=== PATIENT | female | born 1960 | race Caucasian/White ===

== ENCOUNTER → 2016-05-23 | Outpatient (CLI) | payer OTHER ==
[~2016-05-23] MED LIST: ASP325T PO; ATR20T PO; DIAZ-345 PO; DULO30CA; DULO60CA6 PO; ESTR1TAB66; FENO134C PO; INSU100C4 SQ; INSU100I11 SQ; INSU100V7 SQ; LEVE1U; METF-380 PO; NSTU5 PO; OMEG1CAP74 PO; PGLT30T PO; PIOG15TA2 PO
--- OUTSIDE RECORDS SUMMARY | 2016-05-23 14:32 | XMS REPORT | Continuity of Care Document ---
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 Name Role Phone TREVORRAGHAVNOE DO PCP Insurance Providers Payer Name Policy Number Subscriber Name Relationship [employer] [id number] Becky Mac 18 Self / Same As Patient Advance Directives Directive Response Recorded Date/Time Advance Directives No 12/24/13 2:39pm Health Care Power of Umbrella Cutter No 12/24/13 2:39pm Organ Donor No 12/24/13 2:39pm Resuscitation Status Full Code 12/24/13 2:39pm Chief Complaint and Reason for Visit Chief Complaint DKA ACUTE RENAL FAILURE Reason for Visit Acute renal failure DKA (diabetic ketoacidoses) Leukocytosis Electrolyte imbalance Problems Medical Problems Problem Onset Date Status Acute renal failure Unknown Active DKA (diabetic ketoacidoses) Unknown Active Leukocytosis Unknown Active Electrolyte imbalance Unknown Active Medications Medication Dose Route Sig Days/Qty Instructions Order Date Discontinued Date Status Me-Testosterone/Estrogen,Anju 11/12/08 07/14/12 Discontinued Insulin Detemir 11/12/08 07/14/12 Discontinued Duloxetine HCl 60 Mg PO DAILY 11/12/08 Active Duloxetine HCl 11/12/08 07/14/12 Discontinued Metformin HCl (Glucophage) 1,000 Mg PO TWICE A DAY WITH MEALS 12/27/13 Discontinued Pioglitazone HCl 15 Mg PO DAILY 07/14/12 12/24/13 Discontinued Aspirin 325 Mg PO DAILY 07/14/12 12/24/13 Discontinued Fenofibrate (Lofibra) 134 Mg PO DAILY 07/14/12 Active Insulin Glulisine 5 Unit SQ WITH MEALS 07/14/12 12/24/13 Discontinued Diazepam 10 Mg PO BEDTIME PRN SLEEP 07/14/12 Active Insulin Glargine 50 Units SQ DAILY 07/14/12 Active Roxton-3/Dha/Epa/Fish Oil 1,000 Mg PO DAILY 08/06/12 12/24/13 Discontinued Atorvastatin Calcium 20 Mg PO DAILY 08/06/12 12/24/13 Discontinued Pioglitazone HCl 15 Mg PO DAILY 12/24/13 12/27/13 Discontinued Insulin Glulisine 5 U SQ BEFORE MEALS 1 Qty 12/27/13 Active Nystatin 5 Ml PO GIVE EVERY 6 HR ON SCHEDULE 14 Days 12/27/13 Active Social History Social History Problem Response Recorded Date/Time Alcohol Use Occasionally Uses 12/24/2013 2:49pm Recreational Drug Use No 12/24/2013 2:49pm Smoking Status Current Everyday Smoker 12/24/2013 2:39pm Query Response Start Date Stop Date Smoking Status Current Everyday Smoker Hospital Discharge Instructions Patient Instructions Physician Instructions New, Converted or Re-Newed RX: Call to Patients Pharmacy Plan of Care/Instructions/FU: Fwup with PCP in 1week Accuchecks q AC and HS until fwup Activity as Tolerated: Yes Discharge Diet: ADA Diet Plan of Care Discharge Date 12/27/13 6:35pm Disposition 30 STILL A PATIENT Instructions/Education Provided Diabetic Ketoacidosis (GEN) Prescriptions See Medications Section Functional Status Query Response Date Recorded Patient Orientation Person Place [facility] December 27, 2013 7:09pm Comprehension Ability Unable to Comprehend December 26, 2013 8:08pm Allergies, Adverse Reactions, Alerts Allergen Type Severity Reaction Status Last Updated morphine Adverse Reaction Intermediate MAKES HER MEAN Active 08/06/12 Immunizations Name Given Type pneumococcal polysaccharide PPV23 12/26/13 Administered pneumococcal polysaccharide PPV23 12/26/13 Administered Vital Signs Acute Vital Signs Vital Response Date/Time Temperature (Fahrenheit) 98.1 degrees F (97.6 - 99.5) Temperature (Calculated Celsius) 36.60659 degrees C (36.4 - 37.5) Temperature Source Tympanic Pulse Rate (adult) 84 bpm (60 - 90) Respiratory Rate 20 bpm (12 - 24) O2 Sat by Pulse Oximetry 94 % (88 - 100) Blood Pressure 152/84 mm Hg Pain Pain Intensity 3 Height (Feet) 5 feet Height (Inches) 6.00 inches Height (Calculated Centimeters) 167.447591 cm Weight (Pounds) 175 pounds Weight (Ounces) 1.0 oz Weight (Calculated Grams) 42817.015 gm Weight (Calculated Kilograms) 79.284790 kilograms Calculated BMI 23.89 Results Test Source Date Result Interp. Ref. Range Comments Acetaminophen Level September 21, 2007 9:55am < 10 UG/ML L 10.0-30.0 Acetaminophen Screen September 20, 2007 11:20pm Positive H - APAP= ACETAMINOPHEN/PARACETAMOL Activated Partial Thromboplast Time August 05, 2012 8:53am 30 SEC N 24-35 Alanine Aminotransferase (ALT/SGPT) August 05, 2012 8:53am 28 U/L L 30-65 LAB IS TO DRAWN THIS PATIENT. SHE IS IN [place] Albumin August 05, 2012 8:53am 3.6 G/DL N 3.4-5.0 LAB IS TO DRAWN THIS PATIENT. SHE IS [place] Alkaline Phosphatase August 05, 2012 8:53am 142 U/L H 50-136 LAB IS TO DRAWN THIS PATIENT. SHE IS [place] Aspartate Amino Transf (AST/SGOT) August 05, 2012 8:53am 12 U/L L 15-37 LAB IS TO DRAWN THIS PATIENT. SHE IS [place] BUN/Creatinine Ratio August 05, 2012 8:53am 15 - LAB IS TO DRAWN THIS PATIENT. SHE IS [place] Basophils # (Auto) November 12, 2008 9:49pm 0.1 10^3/uL N 0.0-0.1 Basophils (%) (Auto) November 12, 2008 9:49pm 1 % N 0-10 Blood Urea Nitrogen August 05, 2012 8:53am 12 MG/DL N 7-18 LAB IS TO DRAWN THIS PATIENT. SHE IS [place] Calcium Level August 05, 2012 8:53am 8.7 MG/DL N 8.5-10.1 LAB IS TO DRAWN THIS PATIENT. SHE IS [place] Carbon Dioxide Level August 05, 2012 8:53am 29 MMOL/L N 21-32 LAB IS TO DRAWN THIS PATIENT. SHE IS IN [place] Chloride Level August 05, 2012 8:53am 100 MMOL/L L 101-110 LAB IS TO DRAWN THIS PATIENT. SHE IS [place] Cholesterol Level August 05, 2012 8:53am 195 MG/DL N -200 LAB IS TO DRAWN THIS PATIENT. SHE IS [place] Creatinine August 05, 2012 8:53am 0.8 MG/DL N 0.6-1.3 LAB IS TO DRAWN THIS PATIENT. SHE IS [place] Eosinophils # (Auto) November 12, 2008 9:49pm 0.2 10^3/uL N 0.0-0.3 Eosinophils (%) (Auto) November 12, 2008 9:49pm 3 % N 0-10 Glucose Level August 05, 2012 8:53am 299 MG/DL H 74-106 LAB IS TO DRAWN THIS PATIENT. SHE IS [place] HDL Cholesterol August 05, 2012 8:53am 37 MG/DL N 35-60 LAB IS TO DRAWN THIS PATIENT. SHE IS IN [place] Hematocrit August 05, 2012 8:53am 44 % N 35-52 Hemoglobin August 05, 2012 8:53am 14.8 G/DL N 11.5-16.0 LDL Cholesterol August 05, 2012 8:53am 136 MG/DL H 0-129 LAB IS TO DRAWN THIS PATIENT. SHE IS IN [place] Lymphocytes # (Auto) November 12, 2008 9:49pm 4.0 X 10^3 N 1.0-4.0 Lymphocytes (%) (Auto) November 12, 2008 9:49pm 49 % H 12-44 Mean Corpuscular Hemoglobin August 05, 2012 8:53am 29 PG N 25-34 Mean Corpuscular Hemoglobin Concent August 05, 2012 8:53am 34 G/DL N 32-36 Mean Corpuscular Volume August 05, 2012 8:53am 84 FL N 80-99 Mean Platelet Volume August 05, 2012 8:53am 10.1 FL N 7.4-10.4 Monocytes # (Auto) November 12, 2008 9:49pm 0.4 X 10^3 N 0.0-1.0 Monocytes (%) (Auto) November 12, 2008 9:49pm 4 % N 0-12 Neutrophils # (Auto) November 12, 2008 9:49pm 3.6 X 10^3 N 1.8-7.8 Neutrophils (%) (Auto) November 12, 2008 9:49pm 44 % N 42-75 Platelet Count August 05, 2012 8:53am 247 10^3/uL N 130-400 Potassium Level August 05, 2012 8:53am 4.2 MMOL/L N 3.6-5.0 LAB IS TO DRAWN THIS PATIENT. SHE IS [place] Prothromb Time International Ratio July 09, 2007 9:21am 1.0 N 0.8-1.4 INTERPRETIVE DATASUGGESTED THERAPEUTIC RANGE FOR INR'S: VENOUS THROMBOSIS, PULMONARY EMBOLISM, OR PREVENTION OF SYSTEMIC EMBOLISM (EG. IN ATRIAL FIBRILLATION): 2.0 - 3.0 MECHANICAL PROSTHETIC HEART VALVES: 2.5 - 3.5* *NOTE: INR'S UP TO 4.5 MAY BE NECESSARY IN SELECTED GROUPS OF HIGH RISK PATIENTS. [employer] CONSENSUS CONFERENCE ON ANTITHROMBOTIC THERAPY (2000). Prothrombin Time August 05, 2012 8:53am 11.4 SEC L 12.2-14.7 Red Blood Count August 05, 2012 8:53am 5.18 10^6/uL N 4.35-5.85 Red Cell Distribution Width August 05, 2012 8:53am 12.5 % N 10.0-14.5 Salicylates Level September 20, 2007 11:23pm 5.0 MG/DL N 2.8-20.0 Has specimen been collected/obtained? Y Sodium Level August 05, 2012 8:53am 136 MMOL/L N 135-145 LAB IS TO DRAWN THIS PATIENT. SHE IS IN [place] Total Bilirubin August 05, 2012 8:53am 0.2 MG/DL N 0.0-1.0 LAB IS TO DRAWN THIS PATIENT. SHE IS IN [place] Total Protein August 05, 2012 8:53am 7.3 G/DL N 6.4-8.2 LAB IS TO DRAWN THIS PATIENT. SHE IS IN [place] Triglycerides Level August 05, 2012 8:53am 111 MG/DL N 30.0-150.0 LAB IS TO DRAWN THIS PATIENT. SHE IS IN [place] Ur Tricyclic Antidepressants Screen September 20, 2007 11:20pm Negative - Has specimen been collected/obtained? YSpecimen Description CLEAN CATCH Urine Amphetamines Screen September 20, 2007 11:20pm Negative - Has specimen been collected/obtained? YSpecimen Description CLEAN CATCH Urine Bacteria November 12, 2008 8:10pm TRACE - Has specimen been collected/obtained? YSpecimen Description CLEAN CATCH Urine Barbiturates Screen September 20, 2007 11:20pm Negative - Has specimen been collected/obtained? YSpecimen Description CLEAN CATCH Urine Benzodiazepines Screen September 20, 2007 11:20pm Negative - Has specimen been collected/obtained? YSpecimen Description CLEAN CATCH Urine Bilirubin November 12, 2008 8:10pm NEGATIVE - Has specimen been collected/obtained? YSpecimen Description CLEAN CATCH Urine Casts November 12, 2008 8:10pm NONE - Has specimen been collected /obtained? YSpecimen Description CLEAN CATCH Urine Clarity November 12, 2008 8:10pm CLEAR - Has specimen been collected/obtained? YSpecimen Description CLEAN CATCH Urine Cocaine Screen September 20, 2007 11:20pm Negative - Has specimen been collected/obtained? YSpecimen Description CLEAN CATCH Urine Color November 12, 2008 8:10pm YELLOW - Has specimen been collected/obtained? YSpecimen Description CLEAN CATCH Urine Crystals November 12, 2008 8:10pm NONE - Has specimen been collected/obtained? YSpecimen Description CLEAN CATCH Urine Culture Indicated November 12, 2008 8:10pm NO - Has specimen been collected/obtained? YSpecimen Description CLEAN CATCH Urine Glucose (UA) November 12, 2008 8:10pm 3+ H - Has specimen been collected/obtained? YSpecimen Description CLEAN CATCH Urine Hyaline Casts September 20, 2007 11:20pm 0-2 H - Has specimen been collected/obtained? YSpecimen Description CLEAN CATCH Urine Ketones November 12, 2008 8:10pm NEGATIVE - Has specimen been collected/obtained? YSpecimen Description CLEAN CATCH Urine Leukocyte Esterase November 12, 2008 8:10pm NEGATIVE - Has specimen been collected/obtained? YSpecimen Description CLEAN CATCH Urine Methamphetamines Screen September 20, 2007 11:20pm Negative - Has specimen been collected/obtained? YSpecimen Description CLEAN CATCH Urine Mucus November 12, 2008 8:10pm NEGATIVE - Has specimen been collected/obtained? YSpecimen Description CLEAN CATCH Urine Nitrite November 12, 2008 8:10pm NEGATIVE - Has specimen been collected/obtained? YSpecimen Description CLEAN CATCH Urine Opiates Screen September 20, 2007 11:20pm Positive H - Has specimen been collected/obtained? YSpecimen Description CLEAN CATCH Urine Phencyclidine Screen September 20, 2007 11:20pm Negative - Phencyclidine testing by this method can showcross-reactivity with several common medications such as venlafaxine, dextromethorphan, and diphenhydramine. Submission of any positive sample for confirmatory testing is recommended. Urine Test August 19, 2007 6:27am Negative - Has specimen been collected/obtained? YComments to Disc Sander: DS#1 Urine Protein November 12, 2008 8:10pm NEGATIVE - Has specimen been collected/obtained? YSpecimen Description CLEAN CATCH Urine RBC November 12, 2008 8:10pm NONE /HPF - Has specimen been collected/obtained? YSpecimen Description CLEAN CATCH Urine Specific Bailey November 12, 2008 8:10pm 1.010 L - Has specimen been collected/obtained? YSpecimen Description CLEAN CATCH Urine Squamous Epithelial Cells November 12, 2008 8:10pm 2-5 - Has specimen been collected/obtained? YSpecimen Description CLEAN CATCH Urine Urobilinogen November 12, 2008 8:10pm NORMAL MG/DL - Has specimen been collected/obtained? YSpecimen Description CLEAN CATCH Urine WBC November 12, 2008 8:10pm 0-2 /HPF - Has specimen been collected/obtained? YSpecimen Description CLEAN CATCH Urine pH November 12, 2008 8:10pm 6.0 - Has specimen been collected/ obtained? YSpecimen Description CLEAN CATCH VLDL Cholesterol August 05, 2012 8:53am 22 MG/DL N 5-40 LAB IS TO DRAWN THIS PATIENT. SHE IS IN [place] White Blood Count August 05, 2012 8:53am 6.2 10^3/uL N 4.3-11.0 Serum Alcohol September 20, 2007 11:23pm < 5 MG/DL L 5-300 Has specimen been collected/obtained? Y Glucometer September 21, 2007 6:17am 180 MG/DL H 70-110 Estimat Glomerular Filtration Rate August 05, 2012 8:53am > 60 - GFR INTERPRETIVE DATA UNITS FOR ESTIMATED GFR (eGFR): mL/min/1.73 M2 REFERENCE RANGE FOR ESTIMATED GFR (eGFR) eGFR NORMAL eGFR >60 MODERATELY DECREASED eGFR 30-59 SEVERLY DECREASED eGFR 15-29 KIDNEY FAILURE <15 (OR DIALYSIS) Urine Methadone Screen September 20, 2007 11:20pm Negative - Has specimen been collected/obtained? YSpecimen Description CLEAN CATCH Urine Cannabinoids Screen September 20, 2007 11:20pm Negative - Has specimen been collected/obtained? YSpecimen Description CLEAN CATCH Urine RBC (Auto) November 12, 2008 8:10pm NEGATIVE - Has specimen been collected/obtained? YSpecimen Description CLEAN CATCH INR Comment August 05, 2012 8:53am 0.8 N 0.8-1.4 INTERPRETIVE DATASUGGESTED THERAPEUTIC RANGE FOR INR'S: VENOUS THROMBOSIS, PULMONARY EMBOLISM, OR PREVENTION OF SYSTEMIC EMBOLISM (EG. IN ATRIAL FIBRILLATION): 2.0 - 3.0 MECHANICAL PROSTHETIC HEART VALVES: 2.5 - 3.5* *NOTE: INR'S UP TO 4.5 MAY BE NECESSARY IN SELECTED GROUPS OF HIGH RISK PATIENTS. [employer] CONSENSUS CONFERENCE ON ANTITHROMBOTIC THERAPY (2000). MRSA Screen Nasal September 21, 2007 6:15am MRSA not isolated Urine Culture Urine-Clean Catch September 20, 2007 11:20pm Procedures Procedure Status Date Provider(s) Tracing only of electrocardiogram completed 12/24/13 YUNIOR DIAZ DO Encounters Encounter Location Date/Time Discharged Inpatient [facility] 12/24/13 11:53am Recent Diagnosis Acute renal failure DKA (diabetic ketoacidoses) Leukocytosis Electrolyte imbalance
--- NOTE | 2016-05-29 08:00 | ECHOCARDIOGRAPHY REPORT ---
PROCEDURE PHYSICIAN: RADHA GUO DATE OF PROCEDURE: 05/23/2016 TWO DIMENSIONAL ECHOCARDIOGRAM REPORT PRIMARY PHYSICIAN: Dr. David OTHER PHYSICIAN: REFERRING PHYSICIAN: ORDERING PHYSICIAN: Dr. David INDICATION FOR THE PROCEDURE: Aortic root dilation. MEASUREMENTS DERIVED VALUES LV DIAMETER (LAX) NORMALS NORMALS Diastolic 4.3 (3.6-5.2) Eject. Fract. (60%+/-6%) Systolic (2.3-3.9) Diastolic Vol. % Shortening (0.22-0.42) Systolic Vol. Aortic Root 3.5 IVS THICKNESS Diastolic 0.7 (0.6-1.1) LVPW THICKNESS Diastolic 1 (0.6-1.1) LA DIAMETER Systolic 3.4 (2.1-3.7) DESCRIPTION: Two-dimensional echocardiography shows normal global left ventricular systolic function with normal regional wall motion. Aortic, mitral and tricuspid valve leaflets show good leaflet excursion. There is no significant pericardial effusion. There appears to be mild aortic valve sclerosis. Aortic valve appears to be trileaflet. There is no Doppler evidence of any significant valvular stenosis. Mitral inflow is suggestive of grade 1 diastolic dysfunction of the left ventricle. Left ventricular ejection fraction is 55 to 60%. Doppler imaging shows trivial, mitral and tricuspid regurgitation. There is no evidence of significant intracardiac shunt on this transthoracic echocardiographic study. Inferior vena cava appears to be mildly dilated but does exhibit inspiratory collapse. CONCLUSIONS: 1. Normal global left ventricular systolic function with an ejection fraction of approximately 60%. 2. Mild diastolic dysfunction of the left ventricle is suggested on this study. 3. Mild aortic valve sclerosis without any significant aortic stenosis. 4. Trivial, mitral and tricuspid regurgitation. 5. Pulmonary artery systolic pressure is estimated to be within normal limits. 6. This study does not indicate aortic root enlargement. Ascending aorta is not visualized on this study. Job ID: [id number] Dictated Date: 05/28/2016 13:59:36 Scientific Manager Date: 05/29/2016 07:54:39 / pedro
== END ==
LOC: CARD 14:29
PROVIDERS: ATTEND Internal Medicine
DX: I77.819 Aortic ectasia, unspecified site (principal)
CPT/HCPCS: 93306

== ENCOUNTER → 2017-04-18 | Outpatient (CLI) | payer OTHER ==
--- NOTE | 2017-04-18 11:58 | Diagnostic Imaging Report ---
INDICATION: Right hip pain. TIME OF EXAM: 11:53 AM 2 views of the right hip were obtained. FINDINGS: The femoral acetabular alignment is normal. The joint space is well-maintained. The femoral head and neck are intact. No fractures are identified. IMPRESSION: No acute abnormality is detected. Dictated by: Dictated on workstation # [id number]
--- NOTE | 2017-04-18 11:59 | Diagnostic Imaging Report ---
INDICATION: Back pain radiating to the right hip. TIME OF EXAM: 11:51 AM FINDINGS: Curvature and alignment is normal. Vertebral body heights are well-maintained. No acute compression fracture seen. Disc spaces are fairly well-maintained. The aorta does appear to be calcified. IMPRESSION: No acute bony abnormality is detected. Dictated by: Dictated on workstation # [id number]
--- NOTE | 2017-04-18 12:02 | Diagnostic Imaging Report ---
INDICATION: Back pain. TIME OF EXAM: 11:47 AM FINDINGS: Curvature and alignment of the thoracic spine is normal. The vertebral body heights are well-maintained. No acute compression fracture is seen. The pedicles and paraspinous line are intact. IMPRESSION: No acute abnormality is detected. Dictated by: Dictated on workstation # [id number]
== END ==
LOC: RAD 11:14
PROVIDERS: ATTEND Nurse Practitioner Family
DX: M54.5 Low back pain (principal); M25.551 Pain in right hip
CPT/HCPCS: 72072; 72100; 73502

== ENCOUNTER → 2019-12-17 | Outpatient (CLI) | payer OTHER ==
--- NOTE | 2019-12-17 14:34 | Diagnostic Imaging Report ---
PROCEDURE: US carotid duplex, bilateral. TECHNIQUE: Multiple real-time grayscale images were obtained over the carotid arteries in various projections, bilaterally. Additional spectral analysis and color Doppler duplex images were also obtained. INDICATION: Dizziness and carotid bruit. FINDINGS: Mild plaquing in the carotid bulbs and proximal ICAs is noted. Velocities are normal bilaterally. No velocity elevation or stenosis is detected. Both vertebral arteries show antegrade flow. IMPRESSION: No evidence of a hemodynamically significant stenosis. Parameters based on the consensus panel Bella-Scale and Doppler ultrasound criteria published January 2003, Radiology, Volume 229. DOPPLER (peak systolic velocity M/S Right Left CCA 0.93 0.88 ICA Proximal 0.81 0.91 ICA Mid 0.97 1.13 ICA Distal 0.74 1.22 RATIO 1.0 1.4 ECA 1.14 1.04 VERT .49 0.65 Dictated by: Dictated on workstation # [id number]
--- NOTE | 2019-12-17 17:21 | Diagnostic Imaging Report ---
PROCEDURE: US Bilateral lower extremity arterial. TECHNIQUE: Multiple real-time grayscale images are obtained through both lower extremity arterial systems with color Doppler imaging and color Doppler spectral analysis. INDICATION: Bilateral lower extremity claudication. There is some scattered plaquing throughout both lower extremity arterial systems. There is biphasic waveforms in both the right and left common femoral arteries as well as superficial femoral and popliteal arteries. Velocities appear to be fairly symmetric. Below the knee, there are biphasic waveforms in both the right and left anterior tibial arteries. There is monophasic flow at the right posterior tibial artery which is also dampened measuring 19 cm/s compared with the left-sided posterior tibial artery at the ankle measuring 74 cm/s and is biphasic. Both the right and left dorsalis pedis arteries are monophasic. IMPRESSION: Small vessel disease below the knees, as described with monophasic flow in bilateral dorsalis pedis arteries. There is also some dampened velocities and monophasic flow at the right ankle within the posterior tibial artery. No definite complete occlusion is detected. Dictated by: Dictated on workstation # [id number]
== END ==
LOC: RAD 12:00
PROVIDERS: ATTEND Nurse Practitioner Family
DX: I73.9 Peripheral vascular disease, unspecified (principal); G43.909 Migraine, unspecified, not intractable, without status migrainosus; I99.9 Unspecified disorder of circulatory system; R42 Dizziness and giddiness; Z82.3 Family history of stroke
CPT/HCPCS: 93880; 93925

== ENCOUNTER → 2019-12-20 | Outpatient (CLI) | payer OTHER ==
--- NOTE | 2019-12-20 14:17 | Diagnostic Imaging Report ---
PROCEDURE: MR angiography of the brain without the use of contrast. TECHNIQUE: 3D [id number] non contrast enhanced MR angiography of the head was performed. A source data was reformatted into rotating MIP projections. INDICATION: Dizziness. No prior studies are available for comparison. The distal internal carotid arteries appear widely patent. The distal vertebral arteries and basilar artery are patent. The anterior, middle and posterior cerebral arteries are patent. No stenosis or aneurysm is detected. IMPRESSION: Unremarkable MRA of the brain. Dictated by: Dictated on workstation # [id number]
== END ==
LOC: RAD 12:30
PROVIDERS: ATTEND Nurse Practitioner Family
DX: G43.909 Migraine, unspecified, not intractable, without status migrainosus (principal); R42 Dizziness and giddiness; R09.89 Other specified symptoms and signs involving the circulatory and respiratory systems; Z82.3 Family history of stroke
CPT/HCPCS: 70544

== ENCOUNTER → 2020-04-28 | Outpatient (CLI) | payer OTHER ==
--- NOTE | 2020-04-28 17:31 | Diagnostic Imaging Report ---
EXAM: Foot, left, 3 views. INDICATION: Left foot pain. COMPARISON: None. FINDINGS: Linear lucencies and sclerosis in the left 5th proximal phalanx. No other finding suspicious for fracture. No radiopaque foreign body. Achilles and plantar calcaneal heel spurs. IMPRESSION: Linear lucencies and sclerosis in the left 5th proximal phalanx suspicious for subacute, healing fracture. Dictated by: Dictated on workstation # [id number]
== END ==
LOC: RAD 16:46
PROVIDERS: ATTEND Nurse Practitioner Family
DX: S92.912D Unspecified fracture of left toe(s), subsequent encounter for fracture with routine healing (principal); X58.XXXD Exposure to other specified factors, subsequent encounter
CPT/HCPCS: 73630

== ENCOUNTER → 2020-05-25 | Outpatient (CLI) | payer OTHER ==
[~2020-05-25] MED LIST changes: +CATHETER FLUSH 10 ML SYR IV PRN; +HOLD METFORMIN - RECEIVED CONTRAST 20 ML VIAL IV SCH; +IOHEXOL 350 MG/ML 150 ML (OMNIPAQUE 350) VIAL IV ONE; +NS 100 ML (IVPB) BAG IV ONE
--- NOTE | 2020-05-25 08:51 | Diagnostic Imaging Report ---
INDICATION: Bilateral lower extremity claudication. Abnormal arterial sonogram. Axial images were obtained through the pelvis and lower extremities after the administration of IV contrast. MIP projections were made with a CT angiography. Measurements correspond with NASCET methodology. The distal aorta is visualized which shows some calcifications with no aneurysm, stenosis or dissection. There is scattered disease in the iliac arteries with no hemodynamically significant stenosis seen. The common femoral arteries are widely patent bilaterally. There is scattered calcified and noncalcified plaque seen within the superficial femoral and popliteal arteries bilaterally with stenosis of less than 30%. There is multifocal trifurcation vessel disease present. On the right, the anterior tibial artery is visualized down into the foot. The posterior tibial and peroneal arteries on the right are not visualized distal to the distal calf level. On the left, there is multifocal trifurcation vessel disease with no high-grade stenoses or occlusions seen and the 3 vessels are patent into the foot. IMPRESSION: There is trifurcation vessel disease present bilaterally with nonvisualization of the posterior tibial and peroneal arteries in the distal right calf. Only mild disease is seen elsewhere on the study. Dictated by: Dictated on workstation # [id number]
== END ==
LOC: RAD 08:15
PROVIDERS: ATTEND Nurse Practitioner Family
DX: I70.293 Other atherosclerosis of native arteries of extremities, bilateral legs (principal)

== ENCOUNTER 2020-10-12 17:30 | Emergency (ER) | payer OTHER ==
[~2020-10-12] VITALS: Ht 162 cm; Wt 86.2 kg
[~2020-10-12 17:30] MED LIST changes: -CATHETER FLUSH 10 ML SYR IV PRN; -HOLD METFORMIN - RECEIVED CONTRAST 20 ML VIAL IV SCH; -IOHEXOL 350 MG/ML 150 ML (OMNIPAQUE 350) VIAL IV ONE; -NS 100 ML (IVPB) BAG IV ONE
[2020-10-12 17:56] VITALS: BP 158/80
[2020-10-12 18:00] LABS: BASOPHILS # (AUTO) 0.1 10^3/uL (0.0-0.1); BASOPHILS % (AUTO) 1 % (0-10); EOSINOPHILS # (AUTO) 0.2 10^3/uL (0.0-0.3); EOSINOPHILS % (AUTO) 2 % (0-10); HEMATOCRIT 44 % (35-52); HEMOGLOBIN 14.4 g/dL (11.5-16.0); LYMPHOCYTES # (AUTO) 3.5 10^3/uL (1.0-4.0); LYMPHOCYTES % (AUTO) 41 % (12-44); MEAN CORPUSCULAR HEMOGLOBIN 29 pg (25-34); MEAN CORPUSCULAR HGB CONC 33 g/dL (32-36); MEAN CORPUSCULAR VOLUME 88 fL (80-99); MEAN PLATELET VOLUME 10.6 fL (9.0-12.2); MONOCYTES # (AUTO) 0.5 10^3/uL (0.0-1.0); MONOCYTES % (AUTO) 5 % (0-12); NEUTROPHILS # (AUTO) 4.2 10^3/uL (1.8-7.8); NEUTROPHILS % (AUTO) 50 % (42-75); PLATELET COUNT 229 10^3/uL (130-400); WHITE BLOOD COUNT 8.4 10^3/uL (4.3-11.0)
--- NOTE | 2020-10-12 18:12 | ED General ---
General Chief Complaint: Head/Cervical Problems Stated Complaint: DIZZINESS, HIGH HEART RATE Nursing Triage Note: pt presents to ed with complaints of HURD and l forearm numbness since friday. pt reports she was on a zoom tele dr visit with santos rosales today around 1700 when she had some palpitations, tachycardia, and dizziness. Pt was referred to the ed for further evaluation. Source of Information: Patient (SOMEWHAT VAGUE HISTORIAN) History of Present Illness Date Seen by Provider: Oct 12, 2020 Time Seen by Provider: 17:42 Initial Comments PT ARRIVES VIA POV FROM HOME C/O HEADACHE X 3 DAYS HEADACHE IS ON TOP OF HEAD ALSO C/O NUMBNESS TO DORSAL ASPECT OF LEFT MID FOREARM OFF AND ON SINCE FRIDAY NO MOTOR DEFICITS NO VISION CHANGES C/O NAUSEA, NO VOMITING STATES SHE HAS HISTORY OF MIGRAINES AND SHE DOES HAVE THESE SYMPTOMS WITH HER MIGRAINES, BUT STATES "NORMALLY I DON'T GET THEM AT NIGHT, BUT I'VE BEEN GETTING THEM AT NIGHT" TOOK 1 BUTALBITAL LAST PM AROUND 2200, OTHERWISE HAS NOT TAKEN ANYTHING ELSE FOR HEADACHE STATES AROUND NOON TODAY, SHE GOT DIZZY AND HER HEART STARTED POUNDING AND HER HEAD WAS SPINNING AND SHE COULD FEEL HER PULSE IN THE BACK OF HER NECK--NOT HAVING THOSE SYMPTOMS NOW CALLED MARITZA GARDNER JUST BEFORE 1700 TONIGHT AND WAS TOLD TO GO TO ER NO FEVER OR RECENT ILLNESS NO SORE THROAT NO LOSS OF TASTE OR SMELL NO COUGH OR URI SYMPTOMS DOES HAVE CHRONIC NECK AND BACK PAIN, AND IS NO DIFFERENT THAN NORMAL. PT IS INSULIN DEPENDENT DIABETIC, STATES SHE NEVER CHECKS HER BLOOD SUGAR, BUT STATES IT IS "ALWAYS HIGH"--300-400'S NORMALLY PT ALSO HAS HISTORY OF HTN STATES SHE TAKES ALL OF HER MEDICATIONS AT NIGHT, AND NO MISSED DOSES OR CHANGES IN MEDICATIONS OR DOSES PT HAS NOT HAD COVID-19 VACCINE PT WORKS AT [employer] PCP: DR. GARDNER/ MARITZA GARDNER Allergies and Home Medications Allergies Coded Allergies: morphine (Unverified Adverse Reaction, Intermediate, MAKES HER MEAN, 08/06/12) Home Medications Diazepam 5 Mg Tablet, 10 MG PO HS PRN for SLEEP, (Reported) Duloxetine Hcl 60 Mg Capsule.dr, 60 MG PO DAILY, (Reported) Fenofibrate,Micronized 134 Mg Capsule, 134 MG PO DAILY, (Reported) Insulin Glargine,Hum.rec.anlog 300 Units/3 Ml Soln, 50 UNITS SQ DAILY, (Reported) Insulin Glulisine 100 U/Ml Vial, 5 U SQ AC Prescribed by: NOE BONE on 12/27/13 1723 Nystatin 5 Ml Susp, 5 ML PO Q6HR Prescribed by: ISRAEL ACEVEDO on 12/27/13 1745 Patient Home Medication List Home Medication List Reviewed: Yes Review of Systems Review of Systems Constitutional: see HPI; No chills, No diaphoresis; dizziness; No fever EENTM: no symptoms reported; No blurred vision, No double vision, No nose congestion, No throat pain Respiratory: no symptoms reported; No cough, No short of breath Cardiovascular: no symptoms reported; No chest pain Gastrointestinal: see HPI; No abdominal pain, No diarrhea; nausea; No vomiting Genitourinary: no symptoms reported Musculoskeletal: see HPI Skin: no symptoms reported; No rash Psychiatric/Neurological: See HPI, Headache, Numbness, Paresthesia; Denies Weakness Hematologic/Lymphatic: No Symptoms Reported Immunological/Allergic: no symptoms reported Past Wrrimdq-Ytowbs-Zvoote Hx Patient Social History Tobacco Use?: Yes (1 PPD) Tobacco type used: Cigarettes Smoking Status: Current Everyday Smoker Smokeless Tobacco Frequency: Never a User Use of E-Cig and/or Vaping dev: No Substance use?: Yes Substance type: Amphetamines, Marijuana Additional substance use comme: THC AND "SPEED" PILLS Substance frequency: Once in a while Alcohol Use?: Yes Alcohol Frequency: Rarely Past Medical History Surgery/Hospitalization HX: RIGHT ROTATOR CUFF REPAIR HYSTERECTOMY/BILATERAL SALPINGO-OOPHORECTOMY CHOLECYSTECTOMY APPENDECTOMY BILATERAL CARPAL TUNNEL SURGERY CARDIAC CATHS--2007 AND 07/2012--MINIMAL DISEASE, NO INTERVENTION ECHOCARDIOGRAMS-LAST ONE 2016-EF 60%, MILD DIASTOLIC DYSFUNCTION Surgeries: Yes (RIGHT ) Appendectomy, Gallbladder, Hysterectomy, Oophorectomy, Orthopedic Respiratory: No Cardiac: Yes High Cholesterol, Hypertension Neurological: Yes Headaches /Migraines 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 1.0oz. [id number]; 32.00 BMI Method: General Appearance: No Apparent Distress, WD/WN, Other (DOES NOT APPEAR TO BE IN ANY DISCOMFORT OR DISTRESS. FLAT/NON-CHALANT AFFECT. ) HEENT: PERRL/EOMI, TMs Normal, Normal ENT Inspection, Pharynx Normal, Moist Mucous Membranes Neck: Full Range of Motion, Normal Inspection, Non Tender, Supple; No Carotid Bruit, No JVD Respiratory: Normal Breath Sounds, No Accessory Muscle Use, No Respiratory Distress Cardiovascular: Regular Rate, Rhythm, No Edema, No JVD, No Murmur, Normal Peripheral Pulses Gastrointestinal: Non Tender, Soft Back: No CVA Tenderness Extremity: Normal Capillary Refill, Normal Inspection, Normal Range of Motion, Non Tender, No Calf Tenderness, No Pedal Edema Neurologic/Psychiatric: Alert, Oriented x3, No Motor/Sensory Deficits, 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 Norm as Tested; No Abnormal Cerebellar Tests; Other (NIH = 0; SPEECH CLEAR, GAIT STEADY) Skin: Normal Color, Warm/Dry; No Rash Progress/Results/Core Measures Suspected Sepsis SIRS Temperature: Pulse: 62 Respiratory Rate: 18 Laboratory Tests 10/12/20 17:55: White Blood Count 8.4 Blood Pressure 158 /80 Mean: 106 Laboratory Tests 10/12/20 17:55: Creatinine 0.96, Platelet Count 229, Total Bilirubin 0.2 Results/Orders Lab Results Laboratory Tests Test 10/12/20 17:55 10/12/20 17:56 10/12/20 18:03 Range/Units White Blood Count 8.4 4.3-11.0 10^3/uL Red Blood Count 5.00 3.80-5.11 10^6/uL Hemoglobin 14.4 11.5-16.0 g/dL Hematocrit 44 35-52 % Mean Corpuscular Volume 88 80-99 fL Mean Corpuscular Hemoglobin 29 25-34 pg Mean Corpuscular Hemoglobin Concent 33 32-36 g/dL Red Cell Distribution Width 12.5 10.0-14.5 % Platelet Count 229 130-400 10^3/uL Mean Platelet Volume 10.6 9.0-12.2 fL Immature Granulocyte % (Auto) 0 % Neutrophils (%) (Auto) 50 42-75 % Lymphocytes (%) (Auto) 41 12-44 % Monocytes (%) (Auto) 5 0-12 % Eosinophils (%) (Auto) 2 0-10 % Basophils (%) (Auto) 1 0-10 % Neutrophils # (Auto) 4.2 1.8-7.8 10^3/uL Lymphocytes # (Auto) 3.5 1.0-4.0 10^3/uL Monocytes # (Auto) 0.5 0.0-1.0 10^3/uL Eosinophils # (Auto) 0.2 0.0-0.3 10^3/uL Basophils # (Auto) 0.1 0.0-0.1 10^3/uL Immature Granulocyte # (Auto) 0.0 0.0-0.1 10^3/uL Erythrocyte Sedimentation Rate 14 0-30 MM/HR Sodium Level 137 135-145 MMOL/L Potassium Level 4.0 3.6-5.0 MMOL/L Chloride Level 102 98-107 MMOL/L Carbon Dioxide Level 24 21-32 MMOL/L Anion Gap 11 5-14 MMOL/L Blood Urea Nitrogen 15 7-18 MG/DL Creatinine 0.96 0.60-1.30 MG/DL Estimat Glomerular Filtration Rate 59 BUN/Creatinine Ratio 16 Glucose Level 299 H 70-105 MG/DL Calcium Level 9.3 8.5-10.1 MG/DL Corrected Calcium 9.5 8.5-10.1 MG/DL Magnesium Level 1.9 1.6-2.4 MG/DL Total Bilirubin 0.2 0.1-1.0 MG/DL Aspartate Amino Transf (AST/SGOT) 14 5-34 U/L Alanine Aminotransferase (ALT/SGPT) 10 0-55 U/L Alkaline Phosphatase 82 40-136 U/L Lactate Dehydrogenase 222 H 125-220 U/L Troponin I < 0.028 <0.028 NG/ML C-Reactive Protein High Sensitivity 0.93 H 0.00-0.50 MG/DL Total Protein 7.0 6.4-8.2 GM/DL Albumin 3.7 3.2-4.5 GM/DL Procalcitonin 0.03 <0.10 NG/ML TSH [facility] Testing 1.22 0.35-4.94 UIU/ML Serum Alcohol < 10 <10 MG/DL Glucometer 279 H 70-110 MG/DL Influenza Type A (RT-PCR) Not Detected Not Detecte Influenza Type B (RT-PCR) Not Detected Not Detecte SARS-CoV-2 RNA (RT-PCR) Not Detected Not Detecte My Orders Orders - YUNIOR DIAZ DO Ed Iv/Invasive Line Start (10/12/20 17:53) Ekg Tracing (10/12/20 17:53) Monitor-Rhythm Ecg Trace Only (10/12/20 17:53) Alcohol (10/12/20 17:53) Cbc With Automated Diff (10/12/20 17:53) Comprehensive Metabolic Panel (10/12/20 17:53) Drug Screen Stat (Urine) (10/12/20 17:53) Magnesium (10/12/20 17:53) Thyroid Analyzer (10/12/20 17:53) Ua Culture If Indicated (10/12/20 17:53) Troponin I (10/12/20 17:53) Procalcitonin (Pct) (10/12/20 18:03) Hs C Reactive Protein (10/12/20 18:03) Erythrocyte Sedimentation Rate (10/12/20 18:03) LDH (10/12/20 18:03) Covid 19 Inhouse Test (10/12/20 18:03) Influenza A And B By Pcr (10/12/20 18:03) Vital Signs/I&O 10/12/20 17:56 Temp 35.8 Pulse 62 Resp 18 B/P (MAP) 158/80 (106) Pulse Ox 97 O2 Delivery Room Air Capillary Refill : Less Than 3 Seconds Blood Pressure Mean: 106 Progress Note : Progress Note PLACED IN ISOLATION ROOM COVID-19 TESTING PERFORMED ACCUCHECK 279 1842--PT LEAVING AMA-STATES SHE "CAN'T WAIT AROUND ANYMORE" AND DOES NOT WANT HEAD CT DONE, AND DOES NOT WANT TO WAIT FOR ANY TEST RESULTS. COVID TEST PENDING WHEN PT LEFT--AMA PAPERS SIGNED ECG Initial ECG Impression Date: Oct 12, 2020 Initial ECG Impression Time: 17:50 Initial ECG Rate: 63 Initial ECG Impression: Nonspecific Changes Initial ECG Comparisson: Unchanged Departure Impression Primary Impression: Left against medical advice Disposition: AGAINST MEDICAL ADVICE Condition: Against Medical Advice Departure-Patient Inst. Referrals: ACSSANDRA GARDNER DO (PCP/Family) Primary Care Physician YUNIOR DIAZ DO Oct 12, 2020 18:12
[2020-10-12 18:14] LABS: ALBUMIN 3.7 GM/DL (3.2-4.5); CHLORIDE 102 MMOL/L (98-107); SODIUM 137 MMOL/L (135-145)
[2020-10-12 18:15] LABS: CALCIUM 9.3 MG/DL (8.5-10.1)
[2020-10-12 18:16] LABS: GLUCOSE 299 MG/DL (70-105)
[2020-10-12 18:17] LABS: CARBON DIOXIDE 24 MMOL/L (21-32)
[2020-10-12 18:18] LABS: BILIRUBIN,TOTAL 0.2 MG/DL (0.1-1.0)
[2020-10-12 18:20] LABS: ALKALINE PHOSPHATASE 82 U/L (40-136); CREATININE SERUM 0.96 MG/DL (0.60-1.30); GFR ESTIMATED 59
[2020-10-12 18:21] LABS: BUN/CREATININE RATIO 16
[2020-10-12 18:23] LABS: ALANINE AMINOTRANSFERASE 10 U/L (0-55); MAGNESIUM 1.9 MG/DL (1.6-2.4)
[2020-10-12 18:43] LABS: TSH (THYROID ANALYZER) 1.22 UIU/ML (0.35-4.94)
== END 2020-10-12 18:50 | disposition left against medical advice (07) ==
LOC: EDUNIT# 17:30 → ER 17:33
DX: R51.9 Headache, unspecified (principal); R20.0 Anesthesia of skin; I10 Essential (primary) hypertension; E11.9 Type 2 diabetes mellitus without complications; F41.9 Anxiety disorder, unspecified; F32.9 Major depressive disorder, single episode, unspecified; E78.00 Pure hypercholesterolemia, unspecified; F17.210 Nicotine dependence, cigarettes, uncomplicated; Z86.69 Personal history of other diseases of the nervous system and sense organs; Z79.4 Long term (current) use of insulin; Z79.899 Other long term (current) drug therapy; Z20.822 Contact with and (suspected) exposure to COVID-19
CPT/HCPCS: 80053; 82947; 83615; 83735; 84145; 84443; 84484; 85025; 85652; 86141; 87636; 93005; 93041; 99284; G0480; 36415; 80320

== ENCOUNTER 2020-10-13 10:57 | Inpatient (IN) | payer OTHER ==
[~2020-10-13] VITALS: Ht 162.6 cm; Wt 81.7 kg
[2020-10-13] VITALS (10 sets, daily range): BP systolic 137–185; BP diastolic 77–107
--- NOTE | 2020-10-13 11:35 | ED Neurological Problem ---
General Chief Complaint: Neuro-Stroke Like Symptoms Stated Complaint: L SIDED NUMBNESS Source: patient Exam Limitations: no limitations History of Present Illness Date Seen by Provider: Oct 13, 2020 Time Seen by Provider: 11:33 Initial Comments To ER with left-sided numbness. She was seen here last night to be evaluated for her migraines and left arm weakness. She has a history of migraines but she is been getting them at night which is unusual for her. She has had some left arm weakness since 10/10/2015. Upon awakening this morning at about 8 AM nothing was different. At about 10 AM she noticed her left leg to quit working. She is also been having some spasms in the left side of her abdomen but denies nausea vomiting diarrhea or tenderness to touch the abdomen. She is insulin- dependent diabetic but never checks her blood sugars. She smokes 1 pack of cigarettes per day. She left AGAINST MEDICAL ADVICE last night prior to receiving CT evaluation. Timing/Duration: 1 week, increasing Severity: moderate Associated Symptoms: denies symptoms Allergies and Home Medications Allergies Coded Allergies: morphine (Unverified Adverse Reaction, Intermediate, MAKES HER MEAN, 08/06/12) Home Medications Diazepam 5 Mg Tablet, 10 MG PO HS PRN for SLEEP, (Reported) Duloxetine Hcl 60 Mg Capsule.dr, 60 MG PO DAILY, (Reported) Fenofibrate,Micronized 134 Mg Capsule, 134 MG PO DAILY, (Reported) Insulin Glargine,Hum.rec.anlog 300 Units/3 Ml Soln, 50 UNITS SQ DAILY, (Report ed) Insulin Glulisine 100 U/Ml Vial, 5 U SQ AC Prescribed by: NOE BONE on 12/27/13 172 Nystatin 5 Ml Susp, 5 ML PO Q6HR Prescribed by: ISRAEL ACEVEDO on 12/27/13 1745 Patient Home Medication List Home Medication List Reviewed: Yes Review of Systems Review of Systems Constitutional: see HPI Eyes: No Symptoms Reported Ears, Nose, Mouth, Throat: no symptoms reported Respiratory: no symptoms reported Cardiovascular: no symptoms reported Genitourinary: no symptoms reported Musculoskeletal: no symptoms reported Skin: no symptoms reported Psychiatric/Neurological: Headache Endocrine: No Symptoms Reported Hematologic/Lymphatic: No Symptoms Reported Past Toitbwi-Kohrce-Dglzcr Hx Patient Social History Tobacco Use?: Yes Tobacco type used: Cigarettes Smoking Status: Current Everyday Smoker Smokeless Tobacco Frequency: User Current Status Unk Use of E-Cig and/or Vaping dev: No Use of E-Cig and/or Vaping Hermes: User Current Status Unk Substance use?: No Substance type: Other Substance frequency: Once in a while Alcohol Use?: Unable to obtain Pt feels they are or have been: No Past Medical History Surgery/Hospitalization HX: RIGHT ROTATOR CUFF REPAIR HYSTERECTOMY/BILATERAL SALPINGO-OOPHORECTOMY CHOLECYSTECTOMY APPENDECTOMY BILATERAL CARPAL TUNNEL SURGERY CARDIAC CATHS--2007 AND 07/2012--MINIMAL DISEASE, NO INTERVENTION ECHOCARDIOGRAMS-LAST ONE 2016-EF 60%, MILD DIASTOLIC DYSFUNCTION Surgeries: Yes (RIGHT ) Appendectomy, Gallbladder, Hysterectomy, Oophorectomy, Orthopedic Respiratory: No Cardiac: Yes High Cholesterol, Hypertension Neurological: Yes Headaches /Migraines Reproductive Disorders: Yes [employer] History: Hysterectomy, Menopausal Genitourinary: No Gastrointestinal: No Musculoskeletal: Yes (CHRONIC NECK AND BACK PAIN ) Chronic Back Pain Endocrine: Yes (DOES NOT CHECK BLOOD SUGARS; DKA IN PAST) Diabetes, Insulin dep HEENT: No (GLASSES) Psychosocial: Yes Anxiety, Depression Integumentary: No Blood Disorders: No Physical Exam Vital Signs Vital Signs - First Documented 10/13/20 11:15 Temp 36.8 Pulse 81 Resp 16 B/P (MAP) 184/81 Pulse Ox 98 O2 Delivery Room Air Capillary Refill : Height, Weight, BMI Height: 0'64.00" Weight: 180lbs. 1.0oz. 81.790680wl; 32.00 BMI Method: General Appearance: WD/WN, no apparent distress Neck: non-tender, full range of motion Respiratory: no respiratory distress, no accessory muscle use Cardiovascular: regular rate, rhythm, no murmur Gastrointestinal: normal bowel sounds, non tender, soft Neurologic/Psychiatric: alert, normal mood/affect, oriented x 3 Crainal Nerves: normal hearing, normal speech, PERRL Motor/Sensory: pronator drift (L), sensory deficit, weak motor strength LUE, weak motor strength LLE Skin: normal color, warm/dry Stroke Onset of Symptoms Date of Onset of Symptoms: Oct 09, 2020 Time of Symptom Onset: 12:13 Onset of Symptoms: Yes Symptoms onset unknown: Yes NIH Stroke Scale Assessment Select: Initial Level of Consciousness: 0=Alert (0), Level of Consciousness- Questions: 0=Answers both month/age (0), LOC Commands: 0=Performs both tasks (0), Gaze: Normal (0), Visual Gaytan: 1=Partial hemianopia (1), Facial Movement (Facial Paresis): 0=Normal symmetrical mnt (0), Motor Function-Arms Right: 0=No drift (0), Motor Function-Arms Left: 2=Some effort/gravity (2), Motor Function-Legs Right: 0=No drift (0), Motor Function-Legs Left: 3=No effort/gravity (3), Limb Ataxia: 2=Present in two limbs (2), Sensory: 2=Severe to total loss (2), Best Language: 0=No aphasia (0), Dysarthria: 0=Normal (0), Extinction & Inattention: 1=Visual,tactile,auditory (1), Total: 11 Stroke Thrombolytic Exclusion Age 18 or Over: Yes Acute intenal hemorrhage: No History of CVA: No Uncontrolled Coagulation Defec: No Intracranial Hemorrhage: No Severe Hypertension: No GI or Bleed: No Subarachnoid Hemorrhage: No Intracranial Neoplasm/Aneurysm: No Oral Anticoagulants: No Surgery or Trauma: No Puncture of Non-Compressible V: No Recent CPR: No Diabetic Hemorrhagic Retinopat: No Organ Biopsy: No Recent Obstetric Delivery: No Glucose: No Significant Hepatic Dysfunctio: No NIH Stoke Scale >22: No Bacterial Endocarditis: No Pericarditis: No Improving Symptoms: No Platelets: No TPA Contraindication: No IV - TPa Received IV - TPa Procedure Performed?: No Progress/Results/Core Measures Results/Orders Lab Results Laboratory Tests Test 10/13/20 11:17 10/13/20 12:13 10/13/20 13:09 Range/Units White Blood Count 8.0 4.3-11.0 10^3/uL Red Blood Count 5.55 H 3.80-5.11 10^6/uL Hemoglobin 16.0 11.5-16.0 g/dL Hematocrit 48 35-52 % Mean Corpuscular Volume 86 80-99 fL Mean Corpuscular Hemoglobin 29 25-34 pg Mean Corpuscular Hemoglobin Concent 33 32-36 g/dL Red Cell Distribution Width 12.3 10.0-14.5 % Platelet Count 245 130-400 10^3/uL Mean Platelet Volume 12.1 9.0-12.2 fL Immature Granulocyte % (Auto) 0 % Neutrophils (%) (Auto) 66 42-75 % Lymphocytes (%) (Auto) 27 12-44 % Monocytes (%) (Auto) 5 0-12 % Eosinophils (%) (Auto) 1 0-10 % Basophils (%) (Auto) 1 0-10 % Neutrophils # (Auto) 5.2 1.8-7.8 10^3/uL Lymphocytes # (Auto) 2.2 1.0-4.0 10^3/uL Monocytes # (Auto) 0.4 0.0-1.0 10^3/uL Eosinophils # (Auto) 0.1 0.0-0.3 10^3/uL Basophils # (Auto) 0.0 0.0-0.1 10^3/uL Immature Granulocyte # (Auto) 0.0 0.0-0.1 10^3/uL Prothrombin Time 13.1 12.2-14.7 SEC INR Comment 1.0 0.8-1.4 Activated Partial Thromboplast Time 20 L 24-35 SEC D-Dimer 0.51 H 0.00-0.49 UG/ML Sodium Level 134 L 135-145 MMOL/L Potassium Level 4.8 3.6-5.0 MMOL/L Chloride Level 101 98-107 MMOL/L Carbon Dioxide Level 20 L 21-32 MMOL/L Anion Gap 13 5-14 MMOL/L Blood Urea Nitrogen 16 7-18 MG/DL Creatinine 0.97 0.60-1.30 MG/DL Estimat Glomerular Filtration Rate 59 BUN/Creatinine Ratio 16 Glucose Level 323 H 70-105 MG/DL Calcium Level 9.0 8.5-10.1 MG/DL Corrected Calcium 9.2 8.5-10.1 MG/DL Total Bilirubin 0.4 0.1-1.0 MG/DL Aspartate Amino Transf (AST/SGOT) 18 5-34 U/L Alanine Aminotransferase (ALT/SGPT) 13 0-55 U/L Alkaline Phosphatase 75 40-136 U/L Troponin I < 0.028 <0.028 NG/ML Total Protein 7.0 6.4-8.2 GM/DL Albumin 3.7 3.2-4.5 GM/DL Urine Color YELLOW Urine Clarity CLEAR Urine pH 6.0 5-9 Urine Specific [place] <=1.005 1.016-1.022 Urine Protein NEGATIVE NEGATIVE Urine Glucose (UA) 3+ H NEGATIVE Urine Ketones NEGATIVE NEGATIVE Urine Nitrite POSITIVE H NEGATIVE Urine Bilirubin NEGATIVE NEGATIVE Urine Urobilinogen 0.2 < = 1.0 MG/DL Urine Leukocyte Esterase TRACE H NEGATIVE Urine RBC (Auto) 1+ H NEGATIVE Urine RBC NONE /HPF Urine WBC 25-50 H /HPF Urine Squamous Epithelial Cells 0-2 /HPF Urine Crystals NONE /LPF Urine Bacteria MODERATE H /HPF Urine Casts NONE /LPF Urine Mucus NEGATIVE /LPF Urine Culture Indicated YES Micro Results Microbiology 10/13/20 Urine Culture - Preliminary, Resulted Escherichia coli My Orders Orders - NURIA BERRY APRN Cbc With Automated Diff (10/13/20 11:30) Protime With Inr (10/13/20 11:30) Partial Thromboplastin Time (10/13/20 11:30) Comprehensive Metabolic Panel (10/13/20 11:30) Fibrin Degradation Products (10/13/20 11:30) Troponin I (10/13/20 11:30) Ua Culture If Indicated (10/13/20 11:30) Chest 1 View, Ap/Pa Only (10/13/20 11:30) Ekg Tracing (10/13/20 11:30) Accucheck Stat ONCE (10/13/20 11:30) Ed Iv/Invasive Line Start (10/13/20 11:30) Vital Signs Stroke Patient Q15M (10/13/20 11:30) O2 (10/13/20 11:30) Intake & Output 06,14,22 (10/13/20 11:30) Monitor-Rhythm Ecg Trace Only (10/13/20 11:30) Dysphagia Screening Tool (10/13/20 11:30) Post Thrombolytic Adminstratio (10/13/20 11:30) Lipid Panel (10/14/20 06:00) Ct Angio Head/Neck (10/13/20 11:30) Iohexol Injection (Omnipaque 350 Mg/Ml 1 (10/13/20 11:45) Received Contrast (Hold Metformin- Contr (10/13/20 11:45) Ns (Ivpb) (Sodium Chloride 0.9% Ivpb Bag (10/13/20 11:45) Mri Brain W/O Contrast (10/13/20 11:46) Ketorolac Injection (Toradol Injection) (10/13/20 12:15) Prochlorperazine Injection (Compazine In (10/13/20 12:15) Diphenhydramine Injection (Benadryl Inje (10/13/20 12:15) Ketorolac Injection (Toradol Injection) (10/13/20 12:11) Lactated Ringers (Lr 1000 Ml Iv Solution (10/13/20 12:30) Medications Given in ED Vital Signs/I&O 10/13/20 10/13/20 10/13/20 11:15 11:15 11:15 Temp 36.8 Pulse 81 81 Resp 16 16 B/P (MAP) 184/81 184/81 (115) Pulse Ox 98 98 98 O2 Delivery Room Air Room Air Diagnostic Imaging Diagonstic Imaging: Xray Comments NAME: NICKI MAC Nael MED REC#: [id number] PT STATUS: REG ER : 1960 PHYSICIAN: NURIA BERRY APRN ADMIT DATE: 10/13/20/ER Signed Date of Exam:10/13/20 CHEST 1 VIEW, AP/PA ONLY EXAMINATION: Chest 1 view HISTORY: Left-sided weakness. COMPARISON: 12/24/2013. FINDINGS: The lung volumes are normal. No focal consolidation is seen. No large pleural effusion or pneumothorax is seen. The cardiomediastinal silhouette is normal in size and contour. No acute osseous abnormality is seen. IMPRESSION: 1. No acute pleuroparenchymal process. Dictated by: Dictated on workstation # [id number] Dict: 10/13/20 1219 Trans: 10/13/20 1222 [facility] [id number] Interpreted by: KAMRYN HERNANDEZ DO Electronically signed by: KAMRYN HERNANDEZ DO 10/13/20 1222 NAME: NICKI MAC Nael MED REC#: [id number] PT STATUS: REG ER : 1960 PHYSICIAN: NURIA BERRY APRN ADMIT DATE: 10/13/20/ER Draft Date of Exam:10/13/20 MRI BRAIN W/O CONTRAST PROCEDURE: MR imaging of the brain without contrast. TECHNIQUE: Multiplanar, multisequence MR imaging of the brain was performed without contrast. DATE: October 13, 2020. COMPARISON: CT angiography head and neck October 13, 2020. CT head without contrast October 13, 2020. HISTORY: 60-year-old female, left arm and left-sided weakness. Dizziness. Evaluation for stroke. FINDINGS: There is diffusion restriction involving the high mid right frontal lobe cortex as well as the posterior aspect of the right frontal lobe cortex and adjacent parietal cortex. There is also an area of diffusion restriction in the right parietal subcortical white matter. These are consistent with areas of acute infarct. There are signal changes on the FLAIR sequence suggesting these areas of acute infarct or not likely within a few hours of age. There is no additional area of diffusion restriction. There are no areas of abnormal intracranial susceptibility. The ventricles and CSF spaces are normal in size and configuration for patient age. There is no abnormal extra axial fluid collection. No evidence to suggest acute intracranial hemorrhage. There is no MRI apparent loss of normal flow voids. There is no mass effect or midline shift. There is normal aeration of the visualized paranasal sinuses and mastoid air cells. IMPRESSION: 1. Acute infarcts involving the right frontal and parietal lobe cortex with additional acute infarct involving the right parietal subcortical white matter. There are additional signal changes on the diffusion-weighted sequences suggesting these areas of acute infarct or not likely within a few hours of age. 2. No clear evidence to suggest acute intracranial hemorrhage. There is no mass effect or midline shift. Dictated on workstation # [id number] Dict: 10/13/20 1301 Trans: 10/13/20 1305 [facility] [id number] Interpreted by: NATALEE FERRO MD Electronically signed by: Departure Communication (Admissions) Family Conversation NAME: NICKI MAC [facility] REC#: [id number] PT STATUS: REG ER : 1960 PHYSICIAN: NURIA BERRY APRN ADMIT DATE: 10/13/20/ER Draft Date of Exam:10/13/20 CT ANGIO HEAD/NECK PROCEDURE: CT angiography of the head and CT angiography of the neck with and without contrast. TECHNIQUE: Contiguous noncontrast images were obtained from the skull base through the vertex. After intravenous contrast administration, helical CT angiography of the neck was performed. Source data was reformatted into 3D MIP projections. Delayed post contrast acquisition was also obtained. Auto Exposure Controls were utilized during the CT exam to meet ALARA standards for radiation dose reduction. INDICATION: Left-sided upper and lower extremity weakness increasing in severity CTA NECK: There is a three-vessel branching pattern to the aortic arch. The right common carotid artery appears to be widely patent. The left common carotid artery is widely patent. The right carotid bifurcation is patent. There is significant calcified plaque in the proximal right internal carotid artery but no high-grade stenosis is identified. The mid right ICA is patent. There is a high-grade stenosis in the lacerum portion of the distal right ICA. The ICA appears to be of normal caliber in the cavernous as well as clinoid supraclinoid component. The left proximal and mid internal carotid artery is patent. There appears to be a fairly high-grade stenosis of the lacerum portion of the distal left ICA as well. Cavernous as well as the clinoid and supraclinoid component appear to be patent. The left vertebral artery is dominant. Both vertebral arteries appear to be widely patent. CTA HEAD: Basilar artery is patent. Right and left posterior cerebral arteries are patent. The M1 and M2 segments of the middle cerebral arteries bilaterally appear to be patent. No definite large branch occlusion or thromboembolism is seen. Right and left anterior cerebral arteries appear patent. IMPRESSION: High-grade stenosis of the lacerum segment of the distal right internal carotid artery. No large branch occlusion or thromboembolism is identified. Moderate stenosis of the lacerum segment of the distal left internal carotid artery, without evidence of large branch occlusion or thromboembolism. Dictated on workstation # [id number] Dict: 10/13/20 1158 Trans: 10/13/20 1216 [facility] [id number] Interpreted by: CODY STARK MD Electronically signed by: [id number] discussed with Dr. Puentes from stroke neurology at [facility]. 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 He recommends MRI, dual antiplatelets plus statin and tolerate hypertension up to a systolic of 200. Patient could be admitted here and then follow-up with ne urology and neurosurgery at the [facility] on an outpatient basis for further evaluation of the carotid stenosis. In the meantime he recommends Tylenol and analgesics for headache as well as hydration. He does not recommend any TPA given the onset of symptoms left arm weakness being on Friday. Impression Primary Impression: CVA (cerebral vascular accident) Disposition: ADMITTED INPATIENT Condition: Stable Admissions Decision to Admit Reason: Admit from ER (General) Decision to Admit/Date: Oct 13, 2020 Time/Decision to Admit Time: 12:35 Departure-Patient Inst. Referrals: CASSANDRA GARDNER DO (PCP/Family) Primary Care Physician NURIA BERRY APRN Oct 13, 2020 11:35
[2020-10-13] MEDS ORDERED: NS 100 ML (IVPB) BAG IV ONE (11:45)
[2020-10-13] MEDS ORDERED: HOLD METFORMIN - RECEIVED CONTRAST 20 ML VIAL IV SCH (11:45)
[2020-10-13] MEDS ORDERED: IOHEXOL 350 MG/ML 100 ML (OMNIPAQUE 350) VIAL IV ONE (11:45)
[2020-10-13 11:50] LABS: BASOPHILS % (AUTO) 1 % (0-10); EOSINOPHILS # (AUTO) 0.1 10^3/uL (0.0-0.3); EOSINOPHILS % (AUTO) 1 % (0-10); HEMATOCRIT 48 % (35-52); LYMPHOCYTES # (AUTO) 2.2 10^3/uL (1.0-4.0); LYMPHOCYTES % (AUTO) 27 % (12-44); MEAN CORPUSCULAR HEMOGLOBIN 29 pg (25-34); MEAN CORPUSCULAR HGB CONC 33 g/dL (32-36); MEAN CORPUSCULAR VOLUME 86 fL (80-99); MEAN PLATELET VOLUME 12.1 fL (9.0-12.2); MONOCYTES # (AUTO) 0.4 10^3/uL (0.0-1.0); MONOCYTES % (AUTO) 5 % (0-12); NEUTROPHILS # (AUTO) 5.2 10^3/uL (1.8-7.8); NEUTROPHILS % (AUTO) 66 % (42-75); PLATELET COUNT 245 10^3/uL (130-400)
--- NOTE | 2020-10-13 12:03 | Diagnostic Imaging Report ---
EXAMINATION: CT head without contrast. TECHNIQUE: Multiple contiguous axial images were obtained through the brain without the use of intravenous contrast. All CT scans use one or more of the following dose optimizing techniques: automated exposure control, MA and/or KvP adjustment based on patient size and exam type or iterative reconstruction. HISTORY: Left-sided weakness and numbness. Concern for stroke. COMPARISON: 12/20/2019. FINDINGS: No large acute territorial ischemia, mass, or hemorrhage. No midline shift or mass effect. The ventricles, cortical sulci, and basilar cisterns are patent and unremarkable. The orbits are normal. Paranasal sinuses are normal. Mastoid air cells are clear. No soft tissue abnormality is seen. No osseous lesions or fractures are seen. IMPRESSION: 1. No large acute territorial ischemia, mass, or hemorrhage. Dictated by: Dictated on workstation # [id number]
[2020-10-13] MEDS ORDERED: KETOROLAC 30 MG/ML VIAL ONE (12:11)
[2020-10-13] MEDS ORDERED: diphenhydrAMINE 50 MG/ML INJ (BENADRYL) IVP ONE (12:15)
[2020-10-13] MEDS ORDERED: KETOROLAC 30 MG/ML VIAL IVP ONE (12:15)
[2020-10-13] MEDS ORDERED: PROCHLORPERAZINE 10 MG/2ML INJ (COMPAZINE) IV ONE (12:15)
--- NOTE | 2020-10-13 12:16 | Diagnostic Imaging Report ---
PROCEDURE: CT angiography of the head and CT angiography of the neck with and without contrast. TECHNIQUE: Contiguous noncontrast images were obtained from the skull base through the vertex. After intravenous contrast administration, helical CT angiography of the neck was performed. Source data was reformatted into 3D MIP projections. Delayed post contrast acquisition was also obtained. Auto Exposure Controls were utilized during the CT exam to meet ALARA standards for radiation dose reduction. INDICATION: Left-sided upper and lower extremity weakness increasing in severity CTA NECK: There is a three-vessel branching pattern to the aortic arch. The right common carotid artery appears to be widely patent. The left common carotid artery is widely patent. The right carotid bifurcation is patent. There is significant calcified plaque in the proximal right internal carotid artery but no high-grade stenosis is identified. The mid right ICA is patent. There is a high-grade stenosis in the lacerum portion of the distal right ICA. The ICA appears to be of normal caliber in the cavernous as well as clinoid supraclinoid component. The left proximal and mid internal carotid artery is patent. There appears to be a fairly high-grade stenosis of the lacerum portion of the distal left ICA as well. Cavernous as well as the clinoid and supraclinoid component appear to be patent. The left vertebral artery is dominant. Both vertebral arteries appear to be widely patent. CTA HEAD: Basilar artery is patent. Right and left posterior cerebral arteries are patent. The M1 and M2 segments of the middle cerebral arteries bilaterally appear to be patent. No definite large branch occlusion or thromboembolism is seen. Right and left anterior cerebral arteries appear patent. IMPRESSION: High-grade stenosis of the lacerum segment of the distal right internal carotid artery. No large branch occlusion or thromboembolism is identified. Moderate stenosis of the lacerum segment of the distal left internal carotid artery, without evidence of large branch occlusion or thromboembolism. Dictated by: Dictated on workstation # [id number]
--- NOTE | 2020-10-13 12:21 | Diagnostic Imaging Report ---
EXAMINATION: Chest 1 view HISTORY: Left-sided weakness. COMPARISON: 12/24/2013. FINDINGS: The lung volumes are normal. No focal consolidation is seen. No large pleural effusion or pneumothorax is seen. The cardiomediastinal silhouette is normal in size and contour. No acute osseous abnormality is seen. IMPRESSION: 1. No acute pleuroparenchymal process. Dictated by: Dictated on workstation # [id number]
[2020-10-13] MEDS ORDERED: LACTATED RINGERS 1,000 ML IV SCH (12:30)
[2020-10-13 12:35] LABS: ALBUMIN 3.7 GM/DL (3.2-4.5)
[2020-10-13 12:36] LABS: CHLORIDE 101 MMOL/L (98-107); SODIUM 134 MMOL/L (135-145)
[2020-10-13 12:38] LABS: GLUCOSE 323 MG/DL (70-105)
[2020-10-13 12:39] LABS: CARBON DIOXIDE 20 MMOL/L (21-32)
[2020-10-13 12:40] LABS: BILIRUBIN,TOTAL 0.4 MG/DL (0.1-1.0); FIBRIN DEGRADATION PRODUCTS 0.51 UG/ML (0.00-0.49); PROTHROMBIN TIME PATIENT 13.1 SEC (12.2-14.7)
[2020-10-13 12:42] LABS: ALKALINE PHOSPHATASE 75 U/L (40-136); CREATININE SERUM 0.97 MG/DL (0.60-1.30); GFR ESTIMATED 59
[2020-10-13 12:43] LABS: BUN/CREATININE RATIO 16
[2020-10-13 12:45] LABS: ALANINE AMINOTRANSFERASE 13 U/L (0-55); POTASSIUM 4.8 MMOL/L (3.6-5.0)
--- NOTE | 2020-10-13 13:06 | Diagnostic Imaging Report ---
PROCEDURE: MR imaging of the brain without contrast. TECHNIQUE: Multiplanar, multisequence MR imaging of the brain was performed without contrast. DATE: October 13, 2020. COMPARISON: CT angiography head and neck October 13, 2020. CT head without contrast October 13, 2020. HISTORY: 60-year-old female, left arm and left-sided weakness. Dizziness. Evaluation for stroke. FINDINGS: There is diffusion restriction involving the high mid right frontal lobe cortex as well as the posterior aspect of the right frontal lobe cortex and adjacent parietal cortex. There is also an area of diffusion restriction in the right parietal subcortical white matter. These are consistent with areas of acute infarct. There are signal changes on the FLAIR sequence suggesting these areas of acute infarct or not likely within a few hours of age. There is no additional area of diffusion restriction. There are no areas of abnormal intracranial susceptibility. The ventricles and CSF spaces are normal in size and configuration for patient age. There is no abnormal extra axial fluid collection. No evidence to suggest acute intracranial hemorrhage. There is no MRI apparent loss of normal flow voids. There is no mass effect or midline shift. There is normal aeration of the visualized paranasal sinuses and mastoid air cells. IMPRESSION: 1. Acute infarcts involving the right frontal and parietal lobe cortex with additional acute infarct involving the right parietal subcortical white matter. There are additional signal changes on the diffusion-weighted sequences suggesting these areas of acute infarct or not likely within a few hours of age. 2. No clear evidence to suggest acute intracranial hemorrhage. There is no mass effect or midline shift. Dictated by: Dictated on workstation # [id number]
[2020-10-13 13:15] LABS: BILIRUBIN,URINE NEGATIVE (NEGATIVE); CLARITY,URINE CLEAR; COLOR,URINE YELLOW; GLUCOSE, URINE (UA) 3+ (NEGATIVE); KETONES,URINE NEGATIVE (NEGATIVE); LEUKOCYTE ESTERASE ,URINE TRACE (NEGATIVE); NITRITE,URINE POSITIVE (NEGATIVE); PROTEIN,URINE NEGATIVE (NEGATIVE)
[2020-10-13 13:36] LABS: BACTERIA,URINE MODERATE /HPF; SQUAMOUS EPITHELIAL CELL,UR 0-2 /HPF; WBC,URINE 25-50 /HPF
[2020-10-13] MEDS ORDERED: cefTRIAXone 1,000 MG in WATER (STERILE) FOR INJECTION 10 ML IV ONE (14:30)
--- NOTE | 2020-10-13 15:44 | Physical Therapy Evaluation ---
PT Evaluation-General Medical Diagnosis Admission Date Oct 13, 2020 at 13:11 Medical Diagnosis: CVA Onset Date: Oct 13, 2020 Therapy Diagnosis Therapy Diagnosis: impaired mobility/weakness Height/Weight Height (Feet): 0 Height (Inches): 64.00 Weight (Pounds): 180 Weight (Ounces): 1.0 Precautions Precautions/Isolations: Fall Prevention, Standard Precautions, Pressure Ulcer Referral Physician: Vanda Reason for Referral: Evaluation/Treatment Medical History Pertinent Medical History: DM (noncompliant), HTN, Smoking Current History ER x 2 secondary to HURD, left sided weakness/numbness (left AMA first ER visit) Reviewed History: Yes Social History Home: Single Level Current Living Status: Spouse Prior Prior Level of Function SCALE: Activities may be completed with or without assistive devices. 9-Dlxggngrlv-tzrywwt completes the activity by him/herself with no assistance from a helper. 5-Set-up or Clean-up Assistance-helper sets up or cleans up; patient completes activity. [place] assists only prior to or following the activity. 4-Supervision or Touching Assistance-helper provides verbal cues and/or touching/steadying and/or contact guard assistance as patient completes activity. Assistance may be provided throughout the activity or intermittently. 3-Partial/Moderate Assistance-helper does LESS THAN HALF the effort. [place] lifts, holds or supports trunk or limbs, but provides less than half the effort. 2-Substantial/Maximal Assistance-helper does MORE THAN HALF the effort. [place] lifts or holds trunk or limbs and provides more than half the effort. 1-Atullzsrp-uzfjjw does ALL the effort. Patient does none of the effort to complete the activity. Or, the assistance of 2 or more helpers is required for the patient to complete the activity. If activity was not attempted, code reason: 7-Patient Refused. 9-Not Applicable-not attempted and the patient did not perform the activity before the current illness, exacerbation or injury. 10-Not Attempted due to Environmental Limitations-(lack of equipment, weather restraints, etc.). 88-Not Attempted due to Medical Conditions or Safety Concerns. Bed Mobility: 6 Transfers (B,C,W/C): 6 Gait: 6 Stairs: 6 Indoor Mobility (Ambulation): Independent Stairs: Independent Prior Devices Use: None PT Evaluation-Current Subjective Patient agrees to PT. Objective Patient Orientation: Normal For Age ROM/Strength ROM Lower Extremities bilateral LE WFL Strength Lower Extremities left knee flexion/extension 3-/5; hip flexion 3-/5; DF/PF 3/5 right knee flexion/extension 4/5; hip flexion 4/5; DF/PF 4/5 Integumentary/Posture Integumentary refer to nursing notes Bowel Incontinence: No Bladder Incontinence: No Posture WFL Neuromuscular (Tone, Coordination, Reflexes) diminished coordination left UE/LE Sensory Vision: Functional Hearing: Functional Transfers Roll Left to Right (QC): 4 Sit to Lying (QC): 4 Lying to Sitting/Side of Bed(Q: 4 Sit to Stand (QC): 3 Gait Does the Patient Walk?: No and Walking Goal IS indicated Mode of Locomotion: Walk Anticipated Mode of Locomotion: Walk Distance: 5 side steps Gait Assistive Device: FWW Balance Sitting Static: Normal Sitting Dynamic: Normal Standing Static: Fair Standing Dynamic: Fair Assessment/Needs 60 y.o. female, will benefit from skilled PT to address functional strength and mobility to improve current LOF to safely return to home at maximum LOF. Rehab Potential: Fair PT Wireless Operator Goals Wireless Operator Goals PT Wireless Operator Goals Time Frame: Oct 28, 2020 Roll Left & Right (QC): 6 Sit to Lying (QC): 6 Lying-Sitting on Side/Bed(QC): 6 Sit to Stand (QC): 6 Chair/Fla-um-Ejafk Xfer(QC): 6 Toilet Transfer (QC): 6 Car Transfer (QC): 6 Does the Patient Walk: Yes Walk 10 feet (QC): 6 Walk 50ft with 2 Turns (QC): 6 Walk 150 ft (QC): 6 Walking 10ft on Uneven Surface: 6 1 Step (curb) (QC): 6 4 Steps (QC): 6 PT Plan Problem List Problem List: Activity Tolerance, Functional Strength, Safety, Balance, Gait, Transfer, Bed Mobility Treatment/Plan Treatment Plan: Continue Plan of Care Treatment Plan: Bed Mobility, Education, Functional Activity Marian, Functional Strength, Gait, Safety, Therapeutic Exercise, Transfers Treatment Duration: Oct 28, 2020 Frequency: 6 times per week Estimated Hrs Per Day: .25 hour per day Discharge Recommendations Therapy Discharge Recommendati: Other, See Comments (ARU) Time/GCodes Time In: 1500 Time Out: 1520 Total Billed Treatment Time: 20 Total Billed [facility] MARY MCKAY PT Oct 13, 2020 15:44
[2020-10-13] MEDS: LACTATED RINGERS 1,000 ML IV SCH ×2 (15:46→23:41)
--- NOTE | 2020-10-13 15:53 | Occupational Therapy Eval ---
OT Evaluation-General/PLF Medical Diagnosis Admission Date Oct 13, 2020 at 13:11 Medical Diagnosis: CVA Onset Date: Oct 13, 2020 Therapy Diagnosis Therapy Diagnosis: Decreased ADL status Height/Weight Height (Feet): 0 Height (Inches): 64.00 Weight (Pounds): 180 Weight (Ounces): 1.0 Precautions Precautions/Isolations: Fall Prevention, Standard Precautions, Pressure Ulcer Referral Physician: Vanda Referral Reason: Activity Tolerance, Self Care, Evaluation/Treatment, Strengthening/ROM Medical History Pertinent Medical History: DM (noncompliant), HTN, Smoking Additional Medical History IDDM, cardiac caths, R RTC, CBP Current History L side weakness noted Mon 10/09 (primarily sensation deficit through forearm), increased and enters ED night of 10/12, leaving AMA. Returns with CT revealing no evidence of acute intercranial hemorrhage however, MRI results in R frontal and parietal lobe cortex with adde4d acute infarct/ R parietal subcortical white matter. Social History Home: Single Level Current Living Status: Spouse ADL-Prior Level of Function SCALE: Activities may be completed with or without assistive devices. 5-Ezbnmexktz-jmgjlct completes the activity by him/herself with no assistance from a helper. 5-Set-up or Clean-up Assistance-helper sets up or cleans up; patient completes activity. [place] assists only prior to or following the activity. 4-Supervision or Touching Assistance-helper provides verbal cues and/or touc nnamdi/steadying and/or contact guard assistance as patient completes activity. Assistance may be provided throughout the activity or intermittently. 3-Partial/Moderate Assistance-helper does LESS THAN HALF the effort. [place] lifts, holds or supports trunk or limbs, but provides less than half the effort. 2-Substantial/Maximal Assistance-helper does MORE THAN HALF the effort. [place] lifts or holds trunk or limbs and provides more than half the effort. 5-Yckwheqga-nnypkt does ALL the effort. Patient does none of the effort to complete the activity. Or, the assistance of 2 or more helpers is required for the patient to complete the activity. If activity was not attempted, code reason: 7-Patient Refused. 9-Not Applicable-not attempted and the patient did not perform the activity before the current illness, exacerbation or injury. 10-Not Attempted due to Environmental Limitations-(lack of equipment, weather restraints, etc.). 88-Not Attempted due to Medical Conditions or Safety Concerns. 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 Pt denies pain, states continued sensory issues within the L forearm. PT expresses that pt dons socks with s/u EOB. Mental Status/Objective Patient Orientation: Person, Place, Situation, Normal For Age Current Glasses/Contacts: Yes Hearing Aids: No Dentures/Partials: No Hand Dominance: Right Upper Extremity ROM WFL BUE all ROM Upper Extremity Coordination WFL R Delayed LUE Upper Extremity Sensation WFL R Decreased L anterior forearm and L pinkie (states 5th digit decreases in sensation during migraines typically) Upper Extremity Strength R WFL 4/5 L Decreased 3+/5 L shoulder, bicep, finger flexion ADL-Treatment Eating (QC): 6 (per clinical judgment) Oral Hygiene (QC): 6 (per clinical judgment) Shower/Bathe Self (QC): 4 (per clinical judgment) Upper Body Dressing (QC): 5 (per clinical judgment) On/Off Footwear (QC): 5 (per clinical judgment and PT EOB) Other Treatments Pt completes bed mob with PT, seen EOB. Completes ROM/ MMT with good ability (decreased L strength). Pt completes sit to stand with CGA, 2 steps towards HOB toward L with inability to bring L to walker without placement (decreased proprioception/ sensation through L UE). Pt sits, returns to supine with increased time. Pt is educated on ARU vs OP. Pt is a good candidate for inpt rehab due to pt's incoordination, decreased UE strength, need to utilize L hand during typing tasks within her daily working tasks, and success within I/ADL tasks in which OP therapies would not provide as sufficient time based skilled services for pt's needs as inpt rehab would. Pt is educated on this and encouraged to participate if given opportunity. Pt agrees, though states will need to speak with . Pt given hand sponge to L hand, education to complete sensory/ hand honey blender and pinch and coordination tasks with L hand during weekend. Pt left in bed with all needs met/ all questions addressed. office aide present. Education OT Patient Education: Correct positioning, Exercise program, Home exercise program, Purpose of tx/functional activities, Safety issues Teaching Recipient: Patient Teaching Methods: Demonstration, Discussion Response to Teaching: Verbalize Understanding, Return Demonstration OT Thread Twister Goals Thread Twister Goals Time Frame: Oct 20, 2020 Eating (QC): 6 Oral Hygiene (QC): 6 Toileting Hygiene (QC): 6 Shower/Bathe Self (QC): 6 Upper Body Dressing (QC): 6 Lower Body Dressing (QC): 6 On/Off Footwear (QC): 6 Additional Goals: 1-Demonstrate ADL Tasks, 2-Verbalize Understanding, 3-ImproveStrength/Marian 1=Demonstrate adherence to instructed precautions during ADL tasks. 2=Patient will verbalize/demonstrate understanding of assistive devices/modifications for ADL. 3=Patient will improve strength/tolerance for activity to enable patient to perform ADL's. OT Education/Plan Problem List/Assessment Assessment: Decreased Activ Tolerance, Decreased UE Strength, Impaired Coordination, Impaired I ADL's, Impaired Self-Care Skills, Restricted Funct UE ROM Discharge Recommendations Plan/Recommendations: Continue POC Therapy Discharge Recommendati: Post Acute OT Treatment Plan/Plan of Care Treatment,Training & Education: Yes Patient would benefit from OT for education, treatment and training to promote independence in ADL's, mobility, safety and/or upper extremity function for ADL's. Plan of Care: ADL Retraining, UE Funct Exercise/Act, UE Neuromus Re-Ed/Coord Treatment Duration: Oct 20, 2020 Frequency: 5 times per week Estimated Hrs Per Day: .25 hour per day Agreement: Yes Rehab Potential: Fair Time/GCodes Start Time: 13:08 Stop Time: 13:20 Total Time Billed (hr/min): 12 Billed Treatment Time COURTNEY Arroyo (12) TADEO MELCHOR OTR Oct 13, 2020 15:53
[2020-10-13] MEDS ORDERED: CATHETER FLUSH 10 ML SYR IV PRN (16:00)
--- NOTE | 2020-10-13 16:13 | Tele-ICU Consult ---
History of Present Illness History of Present Illness Date Seen by Provider: Oct 13, 2020 Time Seen by Provider: 16:00 Date of Admission 10/13/2020 History of Present Illness She is a 60-year-old female with a past medical history of type 2 diabetes mellitus requiring insulin, hyperlipidemia, smoker apparently has been having left arm weakness for about 5 to 7 days. She also has a migraines. Yesterday she came to the emergency room with the above complaints and she left AGAINST MEDICAL ADVICE. Today she came again with worsening neurological deficit also involving the left lower limb she could not get it worked. In the emergency room she is found to have a left-sided weakness both upper and lower limb with a NIH stroke scale of 11. She is immediately evaluated with a CT angiogram of the head and neck which showed right-sided 90% stenosis of the internal carotid artery and moderate stenosis on the left side. MRI of the brain confirmed that she has a right-sided multiple infarct. She was evaluated by stroke physician from the [facility] and felt she is not a candidate for TPA and suggested to permissive hypertension with sbp <200 and started on statin Plavix and aspirin. She is admitted to the intensive care unit where I have evaluated with the video visit and also discussed with the bedside RN. She is complaining of mild headache. Allergies and Home Medications Allergies Coded Allergies: morphine (Unverified Adverse Reaction, Intermediate, MAKES HER MEAN, 08/06/12) Home Medications Diazepam 5 Mg Tablet, 10 MG PO HS PRN for SLEEP, (Reported) Duloxetine Hcl 60 Mg Capsule.dr, 60 MG PO DAILY, (Reported) Fenofibrate,Micronized 134 Mg Capsule, 134 MG PO DAILY, (Reported) Insulin Glargine,Hum.rec.anlog 300 Units/3 Ml Soln, 50 UNITS SQ DAILY, (Repo rted) Insulin Glulisine 100 U/Ml Vial, 5 U SQ AC Prescribed by: NOE BONE on 12/27/13 172 Nystatin 5 Ml Susp, 5 ML PO Q6HR Prescribed by: ISRAEL ACEVEDO on 12/27/13 1745 Past Medical/Social/Family Hx Current Status status: No Communicates: Verbally Primary Language: Kinyarwanda Preferred Spoken Language: Kinyarwanda Is interpretation needed?: No Review of Systems Constitutional: see HPI (ros per attending physician) Sepsis Event Evaluation Height, Weight, BMI Height: 0'64.00" Weight: 180lbs. 1.0oz. 81.235098ia; 32.00 BMI Method: Exam Exam Patient acknowledged, consented, and participated in this virtual visit which was conducted using real time audio/video Vital Signs Date Time Temp Pulse Resp B/P (MAP) Pulse Ox O2 Delivery O2 Flow Rate FiO2 10/13/20 15:53 36.7 10/13/20 15:00 68 174/107 (129) 95 Room Air 10/13/20 14:45 72 157/99 (118) 99 Room Air 10/13/20 14:02 74 16 161/66 94 Room Air 10/13/20 11:15 36.8 81 16 184/81 (115) 98 Room Air 10/13/20 11:15 98 Room Air 10/13/20 11:15 81 16 184/81 98 Height & Weight Height: 0'64.00" Weight: 180lbs. 1.0oz. 81.058265nz; 32.00 BMI Method: General Appearance: No Apparent Distress Capillary Refill: Less Than 3 Seconds Other comments per attending physician Results Lab Laboratory Tests 10/13/20 11:17 10/13/20 12:13 Meds reviewed Radiology NAME: NICKI MAC MED REC#: [id number] PT STATUS: REG ER : 1960 PHYSICIAN: NURIA BERRY APRN ADMIT DATE: 10/13/20/ER Draft Date of Exam:10/13/20 MRI BRAIN W/O CONTRAST PROCEDURE: MR imaging of the brain without contrast. TECHNIQUE: Multiplanar, multisequence MR imaging of the brain was performed without contrast. DATE: October 13, 2020. COMPARISON: CT angiography head and neck October 13, 2020. CT head without contrast October 13, 2020. HISTORY: 60-year-old female, left arm and left-sided weakness. Dizziness. Evaluation for stroke. FINDINGS: There is diffusion restriction involving the high mid right frontal lobe cortex as well as the posterior aspect of the right frontal lobe cortex and adjacent parietal cortex. There is also an area of diffusion restriction in the right parietal subcortical white matter. These are consistent with areas of acute infarct. There are signal changes on the FLAIR sequence suggesting these areas of acute infarct or not likely within a few hours of age. There is no additional area of diffusion restriction. There are no areas of abnormal intracranial susceptibility. The ventricles and CSF spaces are normal in size and configuration for patient age. There is no abnormal extra axial fluid collection. No evidence to suggest acute intracranial hemorrhage. There is no MRI apparent loss of normal flow voids. There is no mass effect or midline shift. There is normal aeration of the visualized paranasal sinuses and mastoid air cells. IMPRESSION: 1. Acute infarcts involving the right frontal and parietal lobe cortex with additional acute infarct involving the right parietal subcortical white matter. There are additional signal changes on the diffusion-weighted sequences suggesting these areas of acute infarct or not likely within a few hours of age. 2. No clear evidence to suggest acute intracranial hemorrhage. There is no mass effect or midline shift. Dictated on workstation # [id number] Dict: 10/13/20 1301 Trans: 10/13/20 1305 CVB [id number] Interpreted by: NATALEE FERRO MD Electronically signed by: Assessment/Plan Assessment/Plan 1. Acute multiple strokes on the right cerebral hemisphere due to stenosis of the internal carotid artery bilateral right more than the left. 2. 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 History of smoking disorders 4. Type 2 diabetes mellitus requiring insulin and noncompliant with monitoring 5. Hyperlipidemia. 6. tobacco abuse disorder Recommendations 1. Agree with the stroke physician suggestion of starting on a Plavix and aspirin 2. Permissive hypertension 3. Statins. 4. Physical therapy and Occupational Therapy 5. DVT prophylaxis with SCDs for now. 6. LDL goal less than 70 and hemoglobin A1c goal less than 6.0. 7. Once she is stable she will be referred to [facility] neurology unit for intervention on the carotid artery stenosis. 8. advised to quit smoking Critical Care: Critically Ill Patient Diagnosis/Problems Problems/Diagonsis (1) CVA (cerebral vascular accident) Status: Acute Qualifiers: Qualified Codes: I63.231 - Cerebral infarction due to unspecified occlusion or stenosis of right carotid arteries (2) Diabetes mellitus (3) Tobacco abuse (4) Tobacco abuse counseling (5) Hyperlipidemia due to type 2 diabetes mellitus (6) Hyperlipidemia LDL goal <100 AIDA SWARTZ MD Oct 13, 2020 16:13
[2020-10-13] MEDS: inSUlin ASPART (NovoLOG) 1 UNIT/0.01 ML (CHARGE PER UNIT) SC SCH ×2 (16:55→20:19)
[2020-10-14] VITALS (23 sets, daily range): BP systolic 122–178; BP diastolic 52–92
[2020-10-14] MEDS: ACETAMINOPHEN 325 MG TABLET PO PRN (01:47)
[2020-10-14 02:43] LABS: HEMATOCRIT 42 % (35-52); HEMOGLOBIN 13.9 g/dL (11.5-16.0); MEAN CORPUSCULAR HEMOGLOBIN 29 pg (25-34); MEAN CORPUSCULAR HGB CONC 33 g/dL (32-36); MEAN CORPUSCULAR VOLUME 87 fL (80-99); MEAN PLATELET VOLUME 10.6 fL (9.0-12.2); PLATELET COUNT 204 10^3/uL (130-400); WHITE BLOOD COUNT 7.2 10^3/uL (4.3-11.0)
[2020-10-14 02:59] LABS: CHLORIDE 106 MMOL/L (98-107); POTASSIUM 3.8 MMOL/L (3.6-5.0); SODIUM 142 MMOL/L (135-145)
[2020-10-14 03:01] LABS: GLUCOSE 154 MG/DL (70-105)
[2020-10-14] MEDS: POTASSIUM CL 10MEQ/50ML IVPB 50 ML IV SCH (03:02)
[2020-10-14 03:03] LABS: CARBON DIOXIDE 25 MMOL/L (21-32)
[2020-10-14] MEDS: KCL 20 MEQ TAB (K-DUR) PO SCH (03:03)
[2020-10-14] MEDS: inSUlin ASPART (NovoLOG) 1 UNIT/0.01 ML (CHARGE PER UNIT) SC SCH ×4 (03:03→21:29)
[2020-10-14 03:05] LABS: CREATININE SERUM 0.79 MG/DL (0.60-1.30); GFR ESTIMATED > 60
[2020-10-14 03:06] LABS: BUN/CREATININE RATIO 19
[2020-10-14 03:07] LABS: MAGNESIUM 1.9 MG/DL (1.6-2.4)
[2020-10-14] MEDS ORDERED: LORazepam INJ 2 MG/ML (ATIVAN) VIAL IVP PRN (03:15)
[2020-10-14] MEDS: MAGNESIUM 1 GM/100 ML IVPB 100 ML IV SCH (03:15)
[2020-10-14] MEDS ORDERED: PROCHLORPERAZINE 10 MG/2ML INJ (COMPAZINE) IV ONE (03:15)
[2020-10-14] MEDS ORDERED: PROCHLORPERAZINE 10 MG/2ML INJ (COMPAZINE) ONE (03:25)
[2020-10-14] MEDS ORDERED: HYDROcodone/APAP 5 MG/325 MG (LORTAB) TAB ONE (03:26)
[2020-10-14] MEDS: HYDROcodone/APAP 5 MG/325 MG (LORTAB) TAB PO PRN ×2 (03:29→16:20)
[2020-10-14 03:36] LABS: TRIGLYCERIDES 194 MG/DL (<150); VLDL CHOLESTEROL 39 MG/DL (5-40)
[2020-10-14 03:41] LABS: CHOLESTEROL 166 MG/DL (< 200); HDL CHOLESTEROL 29 MG/DL (40-60)
[2020-10-14] MEDS: LACTATED RINGERS 1,000 ML IV SCH ×2 (07:05→09:37)
--- NOTE | 2020-10-14 08:17 | History & Physical-Hospitalist ---
History of Present Illness HPI/Chief Complaint Pt is a 60yoCF with a PMH of IDDMII, HTN, HLD, tobacco abuse, and migraines who presented to the ER due to left sided weakness. She was seen in the ER on 10/12 but left AMA without waiting for CT head. She returned yesterday becauseher symptoms were worsening. She states that on 07/10 she started to developed nightly migraines which is unusual for her. She took fiorcet without relief. 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 She scheduled a televisit with MARITZA David for evaluation on 10/12 and she was adivsed to seek care in the ER which is when she left AMA. She returned yesterday because around 10am her left leg also became "." She was evaluated for a stroke which was confirmed on CT and MRI. She was also found to have carotid stenosis. Case was discussed with stroke neurology (Dr Puentes) at [facility] who declined transfer and recommended local management with DAPT and statin without outpatient follow up. She was not a candidate for TPA due to time of onset to presentation. Source: patient Exam Limitations: no limitations Date Seen 10/14/20 Time Seen by a Provider: 08:12 Attending Physician Rubio Dc MD PCP Joey David DO Referring Physician Date of Admission Oct 13, 2020 at 13:11 Home Medications & Allergies Home Medications Reviewed patient Home Medication Reconciliation performed by pharmacy medication reconciliations control room technician and/or nursing. Patients Allergies have been reviewed. Allergies Allergies Coded Allergies morphine (Unverified Adverse Reaction, Intermediate, MAKES HER MEAN, 08/06/12) Past Bcerirh-Xoshai-Qnjsyr Hx Patient Social History Marrital Status: Employed/Student: employed Smoking Status: Current Everyday Smoker Substance frequency: Rarely Immunizations Up To Date First/Initial COVID19 Vaccinat: Has not received- and declined offer on 10/14/20 Current Status status: No Communicates: Verbally Primary Language: Russian Preferred Spoken Language: Russian Is interpretation needed?: No Past Medical History Surgeries: Appendectomy, Gallbladder, Hysterectomy, Oophorectomy, Orthopedic High Cholesterol, Hypertension 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 /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, 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 Chronic Back Pain, Spasms Diabetes, Insulin dep Anxiety, Depression Blood Disorders: No Family Medical History Reviewed Nursing Family Hx Heart Disease, Cancer, Diabetes, Hypertension, Stroke Review of Systems Constitutional: No chills, No fever, No malaise, No weakness EENTM: no symptoms reported Respiratory: No cough, No short of breath Cardiovascular: No chest pain, No edema, No Hx of Intervention, No palpitations Gastrointestinal: No abdominal pain, No constipation, No diarrhea, No nausea, No vomiting Genitourinary: No dysuria, No frequency Musculoskeletal: see HPI Skin: no symptoms reported Psychiatric/Neurological: See HPI Physical Exam Physical Exam Vital Signs Vital Signs - First Documented 10/13/20 11:15 Temp 36.8 Pulse 81 Resp 16 B/P (MAP) 184/81 Pulse Ox 98 O2 Delivery Room Air Capillary Refill : Less Than 3 Seconds Height, Weight, BMI Height: 0'64.00" Weight: 180lbs. 1.0oz. 81.803679ds; 32.00 BMI Method: General Appearance: No Apparent Distress, WD/WN, Obese HEENT: PERRL/EOMI, Moist Mucous Membranes; No Scleral Icterus (L), No Scleral Icterus (R) Neck: Normal Inspection, Supple Respiratory: Lungs Clear, No Accessory Muscle Use, No Respiratory Distress Cardiovascular: Regular Rate, Rhythm, No JVD, No Murmur Gastrointestinal: Normal Bowel Sounds, Non Tender, Soft Extremity: Normal Capillary Refill, No Calf Tenderness, No Pedal Edema Neurologic/Psychiatric: Alert, Oriented x3, Normal Mood/Affect; No Aphasia, No Facial Droop; Motor Weakness (left leg 4+/5, left upper extremity 4/5, 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 Imaging: Reviewed Imaging Report Imaging [facility], [place] NAME: NICKI MAC MED REC#: [id number] PT STATUS: REG ER : 1960 PHYSICIAN: WILDER ALVAREZ MD ADMIT DATE: 10/13/20/ER Signed Date of Exam:10/13/20 CT HEAD WO-R/O STROKE EXAMINATION: CT head without contrast. TECHNIQUE: Multiple contiguous axial images were obtained through the brain without the use of intravenous contrast. All CT scans use one or more of the following dose optimizing techniques: automated exposure control, MA and/or KvP adjustment based on patient size and exam type or iterative reconstruction. HISTORY: Left-sided weakness and numbness. Concern for stroke. COMPARISON: 12/20/2019. FINDINGS: No large acute territorial ischemia, mass, or hemorrhage. No midline shift or mass effect. The ventricles, cortical sulci, and basilar cisterns are patent and unremarkable. The orbits are normal. Paranasal sinuses are normal. Mastoid air cells are clear. No soft tissue abnormality is seen. No osseous lesions or fractures are seen. IMPRESSION: 1. No large acute territorial ischemia, mass, or hemorrhage. Dictated by: Dictated on workstation # [id number] Dict: 10/13/20 1158 Trans: 10/13/20 1209 [facility] [id number] Interpreted by: KAMRYN HERNANDEZ DO Electronically signed by: KAMRYN HERNANDEZ DO 10/13/20 1209 [facility], [place] NAME: NCIKI MAC [facility] REC#: [id number] PT STATUS: REG ER : 1960 PHYSICIAN: NURIA BERRY APRN ADMIT DATE: 10/13/20/ER Signed Date of Exam:10/13/20 CHEST 1 VIEW, AP/PA ONLY EXAMINATION: Chest 1 view HISTORY: Left-sided weakness. COMPARISON: 12/24/2013. FINDINGS: The lung volumes are normal. No focal consolidation is seen. No large pleural effusion or pneumothorax is seen. The cardiomediastinal silhouette is normal in size and contour. No acute osseous abnormality is seen. IMPRESSION: 1. No acute pleuroparenchymal process. Dictated by: Dictated on workstation # [id number] Dict: 10/13/20 1219 Trans: 10/13/20 1222 CV [id number] Interpreted by: KAMRYN HERNANDEZ DO Electronically signed by: KAMRYN HERNANDEZ DO 10/13/20 1222 [facility] [place] [place] NAME: NICKI MAC [facility] REC#: [id number] PT STATUS: ADM IN : 1960 PHYSICIAN: NURIA BERRY APRN ADMIT DATE: 10/13/20/ICU Signed Date of Exam:10/13/20 CT ANGIO HEAD/NECK PROCEDURE: CT angiography of the head and CT angiography of the neck with and without contrast. TECHNIQUE: Contiguous noncontrast images were obtained from the skull base through the vertex. After intravenous contrast administration, helical CT angiography of the neck was performed. Source data was reformatted into 3D MIP projections. Delayed post contrast acquisition was also obtained. Auto Exposure Controls were utilized during the CT exam to meet ALARA standards for radiation dose reduction. INDICATION: Left-sided upper and lower extremity weakness increasing in severity CTA NECK: There is a three-vessel branching pattern to the aortic arch. The right common carotid artery appears to be widely patent. The left common carotid artery is widely patent. The right carotid bifurcation is patent. There is significant calcified plaque in the proximal right internal carotid artery but no high-grade stenosis is identified. The mid right ICA is patent. There is a high-grade stenosis in the lacerum portion of the distal right ICA. The ICA appears to be of normal caliber in the cavernous as well as clinoid supraclinoid component. The left proximal and mid internal carotid artery is patent. There appears to be a fairly high-grade stenosis of the lacerum portion of the distal left ICA as well. Cavernous as well as the clinoid and supraclinoid component appear to be patent. The left vertebral artery is dominant. Both vertebral arteries appear to be widely patent. CTA HEAD: Basilar artery is patent. Right and left posterior cerebral arteries are patent. The M1 and M2 segments of the middle cerebral arteries bilaterally appear to be patent. No definite large branch occlusion or thromboembolism is seen. Right and left anterior cerebral arteries appear patent. IMPRESSION: High-grade stenosis of the lacerum segment of the distal right internal carotid artery. No large branch occlusion or thromboembolism is identified. Moderate stenosis of the lacerum segment of the distal left internal carotid artery, without evidence of large branch occlusion or thromboembolism. Dictated by: Dictated on workstation # [id number] Dict: 10/13/20 1158 Trans: 10/13/20 1551 [facility] [id number] Interpreted by: CODY STARK MD Electronically signed by: CODY STARK MD 10/13/20 1559 [facility] [place], [place] NAME: NICKI MAC [facility] REC#: [id number] PT STATUS: ADM IN : 1960 PHYSICIAN: UNRIA BERRY APRN ADMIT DATE: 10/13/20/ICU Signed Date of Exam:10/13/20 MRI BRAIN W/O CONTRAST PROCEDURE: MR imaging of the brain without contrast. TECHNIQUE: Multiplanar, multisequence MR imaging of the brain was performed without contrast. DATE: October 13, 2020. COMPARISON: CT angiography head and neck October 13, 2020. CT head without contrast October 13, 2020. HISTORY: 60-year-old female, left arm and left-sided weakness. Dizziness. Evaluation for stroke. FINDINGS: There is diffusion restriction involving the high mid right frontal lobe cortex as well as the posterior aspect of the right frontal lobe cortex and adjacent parietal cortex. There is also an area of diffusion restriction in the right parietal subcortical white matter. These are consistent with areas of acute infarct. There are signal changes on the FLAIR sequence suggesting these areas of acute infarct or not likely within a few hours of age. There is no additional area of diffusion restriction. There are no areas of abnormal intracranial susceptibility. The ventricles and CSF spaces are normal in size and configuration for patient age. There is no abnormal extra axial fluid collection. No evidence to suggest acute intracranial hemorrhage. There is no MRI apparent loss of normal flow voids. There is no mass effect or midline shift. There is normal aeration of the visualized paranasal sinuses and mastoid air cells. IMPRESSION: 1. Acute infarcts involving the right frontal and parietal lobe cortex with additional acute infarct involving the right parietal subcortical white matter. There are additional signal changes on the diffusion-weighted sequences suggesting these areas of acute infarct or not likely within a few hours of age. 2. No clear evidence to suggest acute intracranial hemorrhage. There is no mass effect or midline shift. Dictated by: Dictated on workstation # [id number] Dict: 10/13/20 1301 Trans: 10/13/20 1658 CVB [id number] Interpreted by: NATALEE FERRO MD Electronically signed by: NATALEE FERRO MD 10/13/20 1658 Assessment/Plan Admission Diagnosis Acute Right sided CVA Admission Status: Inpatient Order (span 2 midnights) Reason for Inpatient Admission: see below Assessment and Plan Acute Right sided CVA Left sided weakness Carotid stenosis NIH 11 on presentation, down to 4 today MRI confirmed acute CVA [facility] stroke neurology recommends outpatient follow up for carotid stenosis Continue ASA nad Plavix Continue Stating PT/OT Passed bedside dysphagia screen Lovenox for DVT ppx Can allow for permissive hypertension today, if still elevated will start working on control tonight IDDMII Reported to ER that she does not check sugars and normally poorly controlled (ranges in 300-400 when she dos check) Continue sliding scale Reports she takes 50 units of long acting at night but fasting this AM was 154 without basla insulin so I question compliance Will start 10 units Levemir tonight and titrate up as needed A1c pending HTN HLD Continue Metoprolol Continue statin Neck spasms Unsure of etiology Already on gabapentin so will resume Will add flexeril prn may be due to stroke Consider outpatient EMG if not improvement UTI Continue on Rocephin Await cultures DV pp: Lovenox Diagnosis/Problems Diagnosis/Problems (1) Hypertension Qualifiers: Hypertension type: essential hypertension Qualified Codes: I10 - Essential (primary) hypertension (2) CVA (cerebral vascular accident) Status: Acute Qualifiers: CVA mechanism: stenosis Precerebral and cerebral artery: carotid artery Laterality of affected vessel: right Qualified Codes: I63.231 - Cerebral infarction due to unspecified occlusion or stenosis of right carotid arteries (3) Hyperlipidemia due to type 2 diabetes mellitus (4) Tobacco abuse (5) Diabetes mellitus Clinical Quality Measures Stroke: Date of last known well: Oct 09, 2020 Time of last known well: 12:13 Symptoms onset unknown: Yes RUBIO DC MD Oct 14, 2020 08:17
[2020-10-14] MEDS: DULoxetine 30 MG (CYMBALTA) CAP PO SCH (08:48)
[2020-10-14] MEDS: meTOproloL SUCCINATE 50 MG (TOPROL XL) TAB PO SCH (08:48)
[2020-10-14] MEDS: ASPIRIN 81 MG CHEW (CHILDREN'S ASA) PO SCH (08:48)
[2020-10-14] MEDS: CLOPIDOGREL 75 MG (PLAVIX) TABLET PO SCH (08:48)
--- NOTE | 2020-10-14 08:58 | Tele-ICU Progress Note ---
Subjective Date Seen by a Provider: Oct 14, 2020 Time Seen by a Provider: 08:58 Subjective/Events-last exam Today she is showing some improvement in the left-sided weakness. Are left upper and lower extremities she is able to move and on her NIH stroke scale decrease it to 4. She is walker to the bedside chair with the help of physical therapy. Blood pressure is fairly stable. She denies any other complaints. Video visit made by me. Review of Systems per attending physician Sepsis Event Evaluation Height, Weight, BMI Height: 0'64.00" Weight: 180lbs. 1.0oz. 81.978055oj; 32.00 BMI Method: Exam Exam Patient acknowledged, consented, and participated in this virtual visit which was conducted using real time audio/video Vital Signs Date Time Temp Pulse Resp B/P (MAP) Pulse Ox O2 Delivery O2 Flow Rate FiO2 10/14/20 08:00 74 175/89 (117) 92 Room Air 10/14/20 07:10 36.6 10/14/20 07:00 75 168/78 (108) 92 Room Air 10/14/20 07:00 69 10/14/20 06:00 71 164/81 (108) 89 Room Air 10/14/20 05:00 70 163/79 (107) 88 Room Air 10/14/20 04:00 65 156/82 (106) 91 Room Air 10/14/20 04:00 Room Air 10/14/20 03:32 36.2 15 10/14/20 03:00 62 150/77 (101) 92 Room Air 10/14/20 02:00 63 174/89 (117) 90 Room Air 10/14/20 01:00 67 10/14/20 01:00 70 163/87 (112) 95 Room Air 10/14/20 00:00 Room Air 10/14/20 00:00 36.7 16 10/14/20 00:00 61 158/79 (105) 93 Room Air 10/13/20 23:00 62 164/79 (107) 95 Room Air 10/13/20 22:00 64 164/85 (111) 93 Room Air 10/13/20 21:00 66 147/81 (103) 93 Room Air 10/13/20 20:00 Room Air 10/13/20 19:35 37.0 10/13/20 19:00 69 10/13/20 19:00 68 163/91 (115) 93 Room Air 10/13/20 18:00 77 149/77 (101) 90 Room Air 10/13/20 17:00 77 137/89 (112) 91 Room Air 10/13/20 16:00 Room Air 10/13/20 16:00 77 185/93 (123) 98 Room Air 10/13/20 15:53 36.7 10/13/20 15:00 68 174/107 (129) 95 Room Air 10/13/20 14:46 71 10/13/20 14:45 Room Air 10/13/20 14:45 72 157/99 (118) 99 Room Air 10/13/20 14:02 74 16 161/66 94 Room Air 10/13/20 11:15 36.8 81 16 184/81 (115) 98 Room Air 10/13/20 11:15 98 Room Air 10/13/20 11:15 81 16 184/81 98 I & O 10/14/20 07:00 Intake Total 2000 ml Output Total 1150 ml Balance 850 ml Height & Weight Height: 0'64.00" Weight: 180lbs. 1.0oz. 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 Acute multiple strokes on the right cerebral hemisphere due to stenosis of the internal carotid artery bilateral right more than the left. Power improving 2. 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 History of smoking disorders 4. Type 2 diabetes mellitus requiring insulin and noncompliant with monitoring 5. Hyperlipidemia. 6. tobacco abuse disorder Recommendations 1. Continue Plavix and aspirin 2. Permissive hypertension 3. Statins. 4. Physical therapy and Occupational Therapy 5. DVT prophylaxis with SCDs for now. 6. LDL goal less than 70 and hemoglobin A1c goal less than 6.0. 7. Once she is stable she will be referred to [facility] neurology unit for intervention on the carotid artery stenosis. 8. advised to quit smoking Critical Care: Critically Ill Patient Time spent with patient (mins): 20 Diagnosis/Problems Diagnosis/Problems (1) CVA (cerebral vascular accident) Status: Acute Qualifiers: Qualified Codes: I63.231 - Cerebral infarction due to unspecified occlusion or stenosis of right carotid arteries (2) Diabetes mellitus (3) Tobacco abuse (4) Tobacco abuse counseling (5) Hyperlipidemia due to type 2 diabetes mellitus (6) Hyperlipidemia LDL goal <100 AIDA SWARTZ MD Oct 14, 2020 08:58
[2020-10-14] MEDS: ENOXAPARIN 40 MG/0.4 ML (LOVENOX) SYR SQ SCH (09:36)
--- NOTE | 2020-10-14 10:46 | Physical Therapy Daily Note ---
PT Daily Note-Current Subjective Pt up in chair upon arrival to room, requests return to bed at this time. Denies pain. Appearance Following session, pt supine in bed with LUE propped up on pillow. Pt call light, phone and tray within pts reach on R side of bed. Mental Status Patient Orientation: Person, Situation Attachments: IV Transfers SCALE: Activities may be completed with or without assistive devices. 5-Trjoftjibf-dmnfsvn completes the activity by him/herself with no assistance from a helper. 5-Set-up or Clean-up Assistance-helper sets up or cleans up; patient completes activity. [place] assists only prior to or following the activity. 4-Supervision or Touching Assistance-helper provides verbal cues and/or touching/steadying and/or contact guard assistance as patient completes activity. Assistance may be provided throughout the activity or intermittently. 3-Partial/Moderate Assistance-helper does LESS THAN HALF the effort. [place] lifts, holds or supports trunk or limbs, but provides less than half the effort. 2-Substantial/Maximal Assistance-helper does MORE THAN HALF the effort. [place] lifts or holds trunk or limbs and provides more than half the effort. 9-Suydhighy-epstqo does ALL the effort. Patient does none of the effort to complete the activity. Or, the assistance of 2 or more helpers is required for the patient to complete the activity. If activity was not attempted, code reason: 7-Patient Refused. 9-Not Applicable-not attempted and the patient did not perform the activity before the current illness, exacerbation or injury. 10-Not Attempted due to Environmental Limitations-(lack of equipment, weather restraints, etc.). 88-Not Attempted due to Medical Conditions or Safety Concerns. Sit to Lying (QC): 3 Chair/Wxy-np-Sbekl Xfer(QC): 3 Pt took 5-6 small steps to transfer back to bed with FWW. She has difficultly controlling LUE with step placements and LUE with placement on walker and for functional use to stand from chair. Exercises Supine Ex: Ankle pumps, Quad Set, Glut sets, Heel Slides Supine Reps: 15 Treatments With supine LE exercises, pt LUE mimicks movement of LEs. She reports she is unable to control this movement. Assessment Current Status: Fair Progress Pt with decreased coordination and functional use of LUE this date. Sensation severely decreased, pt unable to feel any touch on LLE. PT Caustic Cresylate Shift Superintendent Goals Halfway Goals PT Ca[employer] Shift Superintendent Goals Time Frame: Oct 28, 2020 Roll Left & Right (QC): 6 Sit to Lying (QC): 6 Lying-Sitting on Side/Bed(QC): 6 Sit to Stand (QC): 6 Chair/Zyv-ic-Xvwtc Xfer(QC): 6 Toilet Transfer (QC): 6 Car Transfer (QC): 6 Does the Patient Walk: Yes Walk 10 feet (QC): 6 Walk 50ft with 2 Turns (QC): 6 Walk 150 ft (QC): 6 Walking 10ft on Uneven Surface: 6 1 Step (curb) (QC): 6 4 Steps (QC): 6 PT Plan Problem List Problem List: Activity Tolerance, Functional Strength, Safety, Balance, Gait, Transfer, Bed Mobility, ROM Treatment/Plan Treatment Plan: Continue Plan of Care Treatment Plan: Bed Mobility, Education, Functional Activity Marian, Functional Strength, Gait, Safety, Therapeutic Exercise, Transfers Treatment Duration: Oct 28, 2020 Frequency: 6 times per week Estimated Hrs Per Day: .25 hour per day Time/GCodes Time In: 925 Time Out: 940 Total Billed Treatment 1 visit FA (10') EX (15') RODRIGUE SOLANO PT Oct 14, 2020 10:46
[2020-10-14] MEDS: cefTRIAXone 1,000 MG in WATER (STERILE) FOR INJECTION 10 ML IV SCH (13:39)
[2020-10-14] MEDS: CYCLOBENZAPRINE 10 MG (FLEXERIL) TAB PO PRN (21:27)
[2020-10-14] MEDS: GABAPENTIN 300 MG (NEURONTIN) CAP PO SCH (21:29)
[2020-10-15] VITALS (14 sets, daily range): BP systolic 126–176; BP diastolic 64–95
[2020-10-15 04:07] LABS: HEMATOCRIT 43 % (35-52); HEMOGLOBIN 14.4 g/dL (11.5-16.0); MEAN CORPUSCULAR HEMOGLOBIN 29 pg (25-34); MEAN CORPUSCULAR HGB CONC 33 g/dL (32-36); MEAN CORPUSCULAR VOLUME 88 fL (80-99); MEAN PLATELET VOLUME 10.8 fL (9.0-12.2); PLATELET COUNT 216 10^3/uL (130-400); WHITE BLOOD COUNT 7.5 10^3/uL (4.3-11.0)
[2020-10-15 04:30] LABS: CHLORIDE 104 MMOL/L (98-107); POTASSIUM 3.7 MMOL/L (3.6-5.0); SODIUM 140 MMOL/L (135-145)
[2020-10-15 04:32] LABS: CALCIUM 9.1 MG/DL (8.5-10.1); GLUCOSE 120 MG/DL (70-105)
[2020-10-15 04:34] LABS: CARBON DIOXIDE 26 MMOL/L (21-32)
[2020-10-15 04:36] LABS: CREATININE SERUM 0.76 MG/DL (0.60-1.30); GFR ESTIMATED > 60; PHOSPHORUS 3.9 MG/DL (2.3-4.7)
[2020-10-15 04:37] LABS: BUN/CREATININE RATIO 22
[2020-10-15 04:39] LABS: MAGNESIUM 1.9 MG/DL (1.6-2.4)
[2020-10-15] MEDS: POTASSIUM CL 10MEQ/50ML IVPB 50 ML IV SCH (05:46)
[2020-10-15] MEDS: KCL 20 MEQ TAB (K-DUR) PO SCH (05:46)
[2020-10-15] MEDS: MAGNESIUM 1 GM/100 ML IVPB 100 ML IV SCH (05:46)
[2020-10-15] MEDS: inSUlin ASPART (NovoLOG) 1 UNIT/0.01 ML (CHARGE PER UNIT) SC SCH ×4 (05:47→21:19)
[2020-10-15] MEDS: meTOproloL SUCCINATE 50 MG (TOPROL XL) TAB PO SCH (08:12)
[2020-10-15] MEDS: DULoxetine 30 MG (CYMBALTA) CAP PO SCH (08:12)
[2020-10-15] MEDS: CLOPIDOGREL 75 MG (PLAVIX) TABLET PO SCH (08:12)
[2020-10-15] MEDS: ASPIRIN 81 MG CHEW (CHILDREN'S ASA) PO SCH (08:12)
[2020-10-15] MEDS: ENOXAPARIN 40 MG/0.4 ML (LOVENOX) SYR SQ SCH (08:12)
[2020-10-15] MEDS: NICOTINE 21 MG (NICODERM) PATCH TD SCH (09:14)
--- NOTE | 2020-10-15 09:14 | Progress Note - Hospitalist ---
Subjective HPI/CC On Admission Date Seen by Provider: Oct 15, 2020 Time Seen by Provider: 09:09 Pt is a 60yoCF with a PMH of IDDMII, HTN, HLD, tobacco abuse, and migraines who presented to the ER due to left sided weakness. She was seen in the ER on 10/12 but left AMA without waiting for CT head. She returned yesterday becauseher sy mptoms were worsening. She states that on 07/10 she started to developed nightly migraines which is unusual for her. She took fiorcet without relief. 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 She scheduled a televisit with MARITZA David for evaluation on 10/12 and she was adivsed to seek care in the ER which is when she left AMA. She returned yesterday because around 10am her left leg also became "." She was evaluated for a stroke which was confirmed on CT and MRI. She was also found to have carotid stenosis. Case was discussed with stroke neurology (Dr Puentes) at [facility] who declined transfer and recommended local management with DAPT and statin without outpatient follow up. She was not a candidate for TPA due to time of onset to presentation. Subjective/Events-last exam Pt reports feeling much better today. Strength improving and can move leg better. [place] to transfer out of bed well. Objective Exam Vital Signs Vital Signs Date Time Temp Pulse Resp B/P (MAP) Pulse Ox O2 Delivery O2 Flow Rate FiO2 10/15/20 08:00 66 172/95 (120) 97 Nasal Cannula 2.00 10/15/20 07:40 36.4 10/14/20 17:00 Capillary Refill : Less Than 3 Seconds General Appearance: No Apparent Distress, WD/WN, Obese Respiratory: Lungs Clear, No Respiratory Distress Cardiovascular: Regular Rate, Rhythm, No Murmur Gastrointestinal: Normal Bowel Sounds, Non Tender, Soft Neurologic/Psychiatric: Alert, Oriented x3; No Aphasia, No Facial Droop Results/Procedures Lab Laboratory Tests 10/15/20 02:40 Patient resulted labs reviewed. Imaging: Reviewed Imaging Report Assessment/Plan Assessment and Plan Assess & Plan/Chief Complaint Acute Right sided CVA Left sided weakness Carotid stenosis NIH 11 on presentation, down to 4 today MRI confirmed acute CVA [facility] stroke neurology recommends outpatient follow up for carotid stenosis Continue ASA and Plavix Continue Statin PT/OT Passed bedside dysphagia screen Lovenox for DVT ppx Resumed metoprolol, will add more if no improvement today IDDMII Reported to ER that she does not check sugars and normally poorly controlled (ranges in 300-400 when she dos check) Continue sliding scale Reports she takes 50 units of long acting at night but fasting this AM was 120 without basal insulin so I question compliance, though she was elevated in the afternoon. Continue sliding scale A1c pending HTN HLD Continue Metoprolol Continue statin Neck spasms Unsure of etiology Continue gabapentin Will add flexeril prn may be due to stroke Consider outpatient EMG if not improvement UTI E coli on cultures, await sensitivities DV pp: Lovenox Critical Care Critically Ill Patient Diagnosis/Problems Diagnosis/Problems (1) Hypertension Qualifiers: Hypertension type: essential hypertension Qualified Codes: I10 - Essential (primary) hypertension (2) CVA (cerebral vascular accident) Status: Acute Qualifiers: CVA mechanism: stenosis Precerebral and cerebral artery: carotid artery Laterality of affected vessel: right Qualified Codes: I63.231 - Cerebral infarction due to unspecified occlusion or stenosis of right carotid arteries (3) Hyperlipidemia due to type 2 diabetes mellitus (4) Tobacco abuse (5) Diabetes mellitus Clinical Quality Measures Stroke: Date of last known well: Oct 09, 2020 Time of last known well: 12:13 Symptoms onset unknown: Yes RUBIO FARIAS MD Oct 15, 2020 09:14
[2020-10-15] MEDS ORDERED: FENO145T26 PO (09:51)
[2020-10-15] MEDS ORDERED: TOPI25TA10 PO (09:51)
[2020-10-15] MEDS ORDERED: METO50TA7 PO (09:51)
[2020-10-15] MEDS ORDERED: MAGN400T39 PO (09:51)
[2020-10-15] MEDS ORDERED: ASPI-1238 PO (09:51)
[2020-10-15] MEDS ORDERED: INSU100I14 SQ (09:51)
[2020-10-15] MEDS ORDERED: DULO60CA59 PO (09:51)
[2020-10-15] MEDS ORDERED: CHOL10007 PO (09:51)
[2020-10-15] MEDS ORDERED: INSU100I34 SQ (09:51)
[2020-10-15] MEDS ORDERED: GABA300C PO (09:51)
[2020-10-15] MEDS ORDERED: hydrALAZINE (APESOLINE) 20 MG/ML VIAL IV PRN (11:15)
[2020-10-15] MEDS ORDERED: lisINopril 20 MG (PRINIVIL) TABLET PO NR (11:30)
--- NOTE | 2020-10-15 11:35 | Tele-ICU Progress Note ---
Subjective Date Seen by a Provider: Oct 15, 2020 Time Seen by a Provider: 11:30 Subjective/Events-last exam Patient resting comfortably in the bedside chair. I have reviewed the case with the CHILD DEVELOPMENT ASSOCIATE TEACHER as well as the attending physician Dr. Lara. Apparently she has improved her left-sided strength and currently her NIH stroke scale is a 3. Vital signs are stable. Review of Systems per attending physician Sepsis Event Evaluation Height, Weight, BMI Height: 0'64.00" Weight: 180lbs. 1.0oz. 81.441812dm; 32.00 BMI Method: Exam Exam Patient acknowledged, consented, and participated in this virtual visit which was conducted using real time audio/video Vital Signs Date Time Temp Pulse Resp B/P (MAP) Pulse Ox O2 Delivery O2 Flow Rate FiO2 10/15/20 10:00 65 152/77 (102) 94 Nasal Cannula 2.00 10/15/20 09:00 65 95 Nasal Cannula 2.00 10/15/20 08:00 Room Air 10/15/20 08:00 66 172/95 (120) 97 Nasal Cannula 2.00 10/15/20 07:40 36.4 10/15/20 07:00 61 10/15/20 07:00 59 172/90 (117) 97 Nasal Cannula 2.00 10/15/20 06:00 60 165/91 (115) 97 Nasal Cannula 2.00 10/15/20 05:32 Nasal Cannula 2.00 10/15/20 04:00 Room Air 10/15/20 03:00 58 146/84 (104) 92 Room Air 10/15/20 02:00 67 145/77 (99) 90 Room Air 10/15/20 01:00 58 153/86 (108) 91 Room Air 10/15/20 01:00 59 10/15/20 00:00 Room Air 10/15/20 00:00 60 142/80 (100) 92 Room Air 10/14/20 23:00 61 153/85 (107) 93 Room Air 10/14/20 22:00 61 156/86 (109) 93 Room Air 10/14/20 21:00 60 146/79 (101) 93 Room Air 10/14/20 20:00 36.2 10/14/20 20:00 Room Air 10/14/20 20:00 71 150/81 (104) 96 Room Air 10/14/20 19:00 74 10/14/20 19:00 70 122/89 (100) 94 Room Air 10/14/20 18:00 67 148/91 (110) 92 Room Air 10/14/20 17:00 64 150/77 (101) 91 Room Air 10/14/20 16:00 71 147/82 (103) 91 Room Air 10/14/20 16:00 36.3 10/14/20 15:05 Room Air 10/14/20 15:00 74 167/92 (117) 94 Room Air 10/14/20 14:00 79 148/74 (98) 92 Room Air 10/14/20 13:00 77 167/81 (109) 94 Room Air 10/14/20 13:00 77 10/14/20 12:00 77 97 Room Air I & O 10/15/20 07:00 Intake Total 3785 ml Output Total 2650 ml Balance 1135 ml Height & Weight Height: 0'64.00" Weight: 180lbs. 1.0oz. 81.918275au; 32.00 BMI Method: General Appearance: No Apparent Distress, WD/WN, Obese HEENT: PERRL/EOMI, Moist Mucous Membranes; No Scleral Icterus (L), No Scleral Icterus (R) Neck: Normal Inspection, Supple Respiratory: Lungs Clear, No Respiratory Distress Cardiovascular: Regular Rate, Rhythm, No Murmur Capillary Refill: Less Than 3 Seconds Gastrointestinal: normal bowel sounds, non tender, soft Extremity: Normal Capillary Refill, No Calf Tenderness, No Pedal Edema Neurologic/Psychiatric: Alert, Oriented x3; No Aphasia, No Facial Droop Results Lab Laboratory Tests 10/13/20 12:13 10/14/20 02:32 10/15/20 02:40 Meds reviewed Assessment/Plan Assessment/Plan 1. Acute multiple strokes on the right cerebral hemisphere due to stenosis of the internal carotid artery bilateral right more than the left. Power improving 2. 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 History of smoking disorders 4. Type 2 diabetes mellitus requiring insulin and noncompliant with monitoring 5. Hyperlipidemia. 6. tobacco abuse disorder Recommendations 1. Continue Plavix and aspirin 2. Permissive hypertension 3. Statins. 4. Physical therapy and Occupational Therapy 5. DVT prophylaxis with SCDs for now. 6. LDL goal less than 70 and hemoglobin A1c goal less than 6.0. 7. Once she is stable she will be referred to [facility] neurology unit for intervention on the carotid artery stenosis. 8. advised to quit smoking Critical Care: Critically Ill Patient Time spent with patient (mins): 15 Diagnosis/Problems Diagnosis/Problems (1) CVA (cerebral vascular accident) Status: Acute Qualifiers: Qualified Codes: I63.231 - Cerebral infarction due to unspecified occlusion or stenosis of right carotid arteries (2) Diabetes mellitus (3) Tobacco abuse (4) Tobacco abuse counseling (5) Hyperlipidemia due to type 2 diabetes mellitus (6) Hyperlipidemia LDL goal <100 AIDA SWARTZ MD Oct 15, 2020 11:35
[2020-10-15] MEDS: cefTRIAXone 1,000 MG in WATER (STERILE) FOR INJECTION 10 ML IV SCH (14:23)
[2020-10-15] MEDS: CYCLOBENZAPRINE 10 MG (FLEXERIL) TAB PO PRN (14:29)
[2020-10-15] MEDS: HYDROcodone/APAP 5 MG/325 MG (LORTAB) TAB PO PRN (17:57)
[2020-10-15] MEDS: GABAPENTIN 300 MG (NEURONTIN) CAP PO SCH (21:18)
[2020-10-16 04:17] VITALS: BP 121/74
[2020-10-16 06:43] LABS: BUN/CREATININE RATIO 21; CALCIUM 8.8 MG/DL (8.5-10.1); CARBON DIOXIDE 23 MMOL/L (21-32); CHLORIDE 103 MMOL/L (98-107); GFR ESTIMATED > 60; GLUCOSE 179 MG/DL (70-105); MAGNESIUM 1.6 MG/DL (1.6-2.4); PHOSPHORUS 4.4 MG/DL (2.3-4.7); POTASSIUM 3.9 MMOL/L (3.6-5.0); SODIUM 137 MMOL/L (135-145)
[2020-10-16] MEDS: inSUlin ASPART (NovoLOG) 1 UNIT/0.01 ML (CHARGE PER UNIT) SC SCH ×8 (06:46→21:45)
[2020-10-16] MEDS: POTASSIUM CL 10MEQ/50ML IVPB 50 ML IV SCH (06:46)
[2020-10-16] MEDS: MAGNESIUM 1 GM/100 ML IVPB 100 ML IV SCH (06:47)
[2020-10-16] MEDS: KCL 20 MEQ TAB (K-DUR) PO SCH (06:47)
[2020-10-16 07:10] VITALS: BP 179/79
[2020-10-16] MEDS: meTOproloL SUCCINATE 50 MG (TOPROL XL) TAB PO SCH (07:54)
[2020-10-16] MEDS: DULoxetine 30 MG (CYMBALTA) CAP PO SCH (07:54)
[2020-10-16] MEDS: NICOTINE 21 MG (NICODERM) PATCH TD SCH (07:54)
[2020-10-16] MEDS: CLOPIDOGREL 75 MG (PLAVIX) TABLET PO SCH (07:54)
[2020-10-16] MEDS: PATCH REMOVAL TP SCH (07:54)
[2020-10-16] MEDS: ENOXAPARIN 40 MG/0.4 ML (LOVENOX) SYR SQ SCH (07:54)
[2020-10-16] MEDS: ASPIRIN 81 MG CHEW (CHILDREN'S ASA) PO SCH (07:54)
[2020-10-16] MEDS ORDERED: lisINopril 20 MG (PRINIVIL) TABLET PO SCH (09:00)
[2020-10-16] MEDS: HYDROcodone/APAP 5 MG/325 MG (LORTAB) TAB PO PRN ×2 (11:31→19:44)
[2020-10-16] MEDS: CYCLOBENZAPRINE 10 MG (FLEXERIL) TAB PO PRN ×2 (11:31→15:55)
[2020-10-16 11:37] VITALS: BP 128/68
--- NOTE | 2020-10-16 12:11 | Progress Note - Hospitalist ---
Subjective HPI/CC On Admission Date Seen by Provider: Oct 16, 2020 Time Seen by Provider: 09:20 Pt is a 60yoCF with a PMH of IDDMII, HTN, HLD, tobacco abuse, and migraines who presented to the ER due to left sided weakness. She was seen in the ER on 10/12 but left AMA without waiting for CT head. She returned yesterday becauseher sy mptoms were worsening. She states that on 07/10 she started to developed nightly migraines which is unusual for her. She took fiorcet without relief. 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 She scheduled a televisit with MARITZA David for evaluation on 10/12 and she was adivsed to seek care in the ER which is when she left AMA. She returned yesterday because around 10am her left leg also became "." She was evaluated for a stroke which was confirmed on CT and MRI. She was also found to have carotid stenosis. Case was discussed with stroke neurology (Dr Puentes) at [facility] who declined transfer and recommended local management with DAPT and statin without outpatient follow up. She was not a candidate for TPA due to time of onset to presentation. Subjective/Events-last exam She is feeling better. She thinks her left-sided weakness is improving. She has been working with physical therapy. Objective Exam Vital Signs Vital Signs Date Time Temp Pulse Resp B/P (MAP) Pulse Ox O2 Delivery O2 Flow Rate FiO2 10/16/20 08:00 Room Air 10/16/20 07:10 36.7 68 20 179/79 (112) 92 10/15/20 12:00 2.00 Capillary Refill : Less Than 3 Seconds General Appearance: No Apparent Distress, Obese Respiratory: Lungs Clear, Normal Breath Sounds, No Respiratory Distress Cardiovascular: Regular Rate, Rhythm, No Edema, No Murmur Gastrointestinal: Normal Bowel Sounds, Non Tender, Soft Extremity: Normal Inspection, Non Tender, No Pedal Edema Neurologic/Psychiatric: Alert, Oriented x3, Normal Mood/Affect, Motor Weakness (Left hand 4 out of 5 strength, left lower extremity 4 out of 5) Skin: Normal Color, Warm/Dry Lymphatic: No Adenopathy Results/Procedures Lab Laboratory Tests 10/16/20 05:38 Patient resulted labs reviewed. Imaging: Reviewed Imaging Report Assessment/Plan Assessment and Plan Assess & Plan/Chief Complaint Acute ischemic stroke Carotid stenosis MRI confirmed multifocal acute stroke [facility] stroke neurology recommends outpatient follow up for carotid stenosis Continue ASA and Plavix Continue Statin PT/OT Passed bedside dysphagia screen IRU evaluation T2DM with hyperglycemia Increase Levemir Add NovoLog with meals Sliding scale insulin A1c pending HTN HLD Continue Metoprolol and statin Neck spasms Continue gabapentin Flexeril prn Consider outpatient EMG if no improvement UTI E coli on cultures, shipley-sensitive Transition to Macrobid DVT prophylaxis: Lovenox Diagnosis/Problems Diagnosis/Problems (1) Acute ischemic stroke Status: Acute (2) Carotid stenosis Status: Acute Qualifiers: Laterality: bilateral Qualified Codes: I65.23 - Occlusion and stenosis of bilateral carotid arteries (3) Hypertension Status: Chronic Qualifiers: Hypertension type: essential hypertension Qualified Codes: I10 - Essential (primary) hypertension (4) Hyperlipidemia due to type 2 diabetes mellitus Status: Chronic (5) Diabetes mellitus Status: Chronic Qualifiers: Diabetes mellitus type: type 2 Diabetes mellitus long-term insulin use: with manager terminal use Diabetes mellitus complication status: with hyperglycemia Qualified Codes: E11.65 - Type 2 diabetes mellitus with hyperglycemia; 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
[2020-10-16] MEDS ORDERED: NITROFURANTOIN 100 MG (MACROBID) CAPSULE PO NR (12:30)
--- NOTE | 2020-10-16 14:47 | Physical Therapy Daily Note ---
PT Daily Note-Current Subjective Patient in bed pre tx, agrees to PT, has some pain in her left medial knee. Appearance Patient in recliner post tx with nurse call, phone, tray, all needs met. Mental Status Patient Orientation: Person, Place, Situation Transfers SCALE: Activities may be completed with or without assistive devices. 5-Ejpefjtgzs-sjjbuyp completes the activity by him/herself with no assistance from a helper. 5-Set-up or Clean-up Assistance-helper sets up or cleans up; patient completes activity. [place] assists only prior to or following the activity. 4-Supervision or Touching Assistance-helper provides verbal cues and/or touching/steadying and/or contact guard assistance as patient completes activity. Assistance may be provided throughout the activity or intermittently. 3-Partial/Moderate Assistance-helper does LESS THAN HALF the effort. [place] lifts, holds or supports trunk or limbs, but provides less than half the effort. 2-Substantial/Maximal Assistance-helper does MORE THAN HALF the effort. [place] lifts or holds trunk or limbs and provides more than half the effort. 8-Qwcqwqzjs-lhxnrf does ALL the effort. Patient does none of the effort to complete the activity. Or, the assistance of 2 or more helpers is required for the patient to complete the activity. If activity was not attempted, code reason: 7-Patient Refused. 9-Not Applicable-not attempted and the patient did not perform the activity before the current illness, exacerbation or injury. 10-Not Attempted due to Environmental Limitations-(lack of equipment, weather restraints, etc.). 88-Not Attempted due to Medical Conditions or Safety Concerns. Roll Left & Right (QC): 6 Lying to Sitting/Side of Bed(Q: 4 Sit to Stand (QC): 4 Chair/Fol-dx-Kvbtd Xfer(QC): 4 Gait Training Distance: 20' Walk 10 feet (QC): 3 Gait Assistive Device: FWW Patient needs some assist with getting her left hand onto the walker and some help guiding the walker Exercises Seated Therapy Exercises: Ankle pumps, Long arc quads, Hip flexion Seated Reps: 15 Treatments bed mobility and transfers, ambulation, LE exercise Assessment Current Status: Fair Progress has some dizziness with supine to sit but recovers after a minute PT Senior Care Goals Senior Care Goals PT Senior Care Goals Time Frame: Oct 28, 2020 Roll Left & Right (QC): 6 Sit to Lying (QC): 6 Lying-Sitting on Side/Bed(QC): 6 Sit to Stand (QC): 6 Chair/Iew-sc-Bfukl Xfer(QC): 6 Toilet Transfer (QC): 6 Car Transfer (QC): 6 Does the Patient Walk: Yes Walk 10 feet (QC): 6 Walk 50ft with 2 Turns (QC): 6 Walk 150 ft (QC): 6 Walking 10ft on Uneven Surface: 6 1 Step (curb) (QC): 6 4 Steps (QC): 6 PT Plan Problem List Problem List: Activity Tolerance, Functional Strength, Safety, Balance, Gait, Transfer, Bed Mobility, ROM Treatment/Plan Treatment Plan: Continue Plan of Care Treatment Plan: Bed Mobility, Education, Functional Activity Marian, Functional Strength, Gait, Safety, Therapeutic Exercise, Transfers Treatment Duration: Oct 28, 2020 Frequency: 6 times per week Estimated Hrs Per Day: .25 hour per day Safety Risks/Education Patient Education: Gait Training, Transfer Techniques, Correct Positioning, Safety Issues Teaching Recipient: Patient Teaching Methods: Demonstration, Discussion Response to Teaching: Reinforcement Needed Time/GCodes Time In: 1410 Time Out: 1426 Total Billed Treatment Time: 16 Total Billed Treatment 1 visit FA 16' GUILHERME MARTINEZ PT Oct 16, 2020 14:47
--- NOTE | 2020-10-16 14:57 | Occupational Ther Daily Note ---
OT Current Status-Daily Note Subjective Pt in shower when MELENDEZ entered room. Pt agrees to therapy. No c/o pain at this time. Mental Status/Objective Patient Orientation: Person, Place, Time, Situation ADL-Treatment Sitting on shower bench, pt able to complete all areas except buttocks/jose area by self. CGA in standing to cleanse buttocks/jose area. Pt able to don/doff hospital gown by self after set up. Pt doffed/donned socks by self after set up. SBA while pt stood at sink to complete oral care. CGA for toilet transfer and SBA for toileting. Pt has good strength of L UE though decreased coordination. Pt has slight L visual field cut. Pt continues to use therapy sponge for strength and coordination of L hand. After therapy, pt sitting in recliner with call light/phone in reach. All needs met in room. Therapy Code Descriptions/Definitions Functional [place] Measure: 0=Not Assessed/NA 4=Minimal Assistance 1=Total Assistance 5=Supervision or Setup 2=Maximal Assistance 6=Modified [place] 3=Moderate Assistance 7=Complete IndependenceSCALE: Activities may be completed with or without assistive devices. 6-Kipmajrztt-notwexs completes the activity by him/herself with no assistance from a helper. 5-Set-up or Clean-up Assistance-helper sets up or cleans up; patient completes activity. [place] assists only prior to or following the activity. 4-Supervision or Touching Assistance-helper provides verbal cues and/or touching/steadying and/or contact guard assistance as patient completes activity. Assistance may be provided throughout the activity or intermittently. 3-Partial/Moderate Assistance-helper does LESS THAN HALF the effort. [place] lifts, holds or supports trunk or limbs, but provides less than half the effort. 2-Substantial/Maximal Assistance-helper does MORE THAN HALF the effort. [place] lifts or holds trunk or limbs and provides more than half the effort. 0-Lrexznhfh-ybbaii does ALL the effort. Patient does none of the effort to complete the activity. Or, the assistance of 2 or more helpers is required for the patient to complete the activity. If activity was not attempted, code reason: 7-Patient Refused. 9-Not Applicable-not attempted and the patient did not perform the activity before the current illness, exacerbation or injury. 10-Not Attempted due to Environmental Limitations-(lack of equipment, weather restraints, etc.). 88-Not Attempted due to Medical Conditions or Safety Concerns. Oral Hygiene (QC): 4 Shower/Bathe Self (QC): 4 Upper Body Dressing (QC): 5 On/Off Footwear: 5 Toileting Hygiene (QC): 4 Toilet Transfer (QC): 4 Discussed tub transfer bench for home tub/shower. OT Assisted Goals Assisted Goals Time Frame: Oct 20, 2020 Eating (QC): 6 Oral Hygiene (QC): 6 Toileting Hygiene (QC): 6 Shower/Bathe Self (QC): 6 Upper Body Dressing (QC): 6 Lower Body Dressing (QC): 6 On/Off Footwear (QC): 6 Additional Goals: 1-Demonstrate ADL Tasks, 2-Verbalize Understanding, 3- ImproveStrength/Marian 1=Demonstrate adherence to instructed precautions during ADL tasks. 2=Patient will verbalize/demonstrate understanding of assistive devices/modifications for ADL. 3=Patient will improve strength/tolerance for activity to enable patient to perform ADL's. OT Education/Plan Problem List/Assessment Assessment: Decreased Activ Tolerance, Impaired Self-Care Skills, Restricted Funct UE ROM Discharge Recommendations Plan/Recommendations: Continue POC Equpiment Recommendations-D/C: Extended Bath Bench Treatment Plan/Plan of Care Patient would benefit from OT for education, treatment and training to promote independence in ADL's, mobility, safety and/or upper extremity function for ADL's. Plan of Care: ADL Retraining, UE Funct Exercise/Act, UE Neuromus Re-Ed/Coord Treatment Duration: Oct 20, 2020 Frequency: 5 times per week Estimated Hrs Per Day: .25 hour per day Agreement: Yes Rehab Potential: Fair Time/GCodes Start Time: 09:45 Stop Time: 10:15 Total Time Billed (hr/min): 30 Billed Treatment Time 1 visit-ADL 2 (30 min) ALEXANDRA JOSÉ Oct 16, 2020 14:57
[2020-10-16 16:00] VITALS: BP 141/66
[2020-10-16] MEDS: NITROFURANTOIN 100 MG (MACROBID) CAPSULE PO SCH (19:33)
[2020-10-16] MEDS: GABAPENTIN 300 MG (NEURONTIN) CAP PO SCH (19:33)
[2020-10-16 20:00] VITALS: BP 166/75
[2020-10-17] VITALS (7 sets, daily range): BP systolic 133–171; BP diastolic 67–77
[2020-10-17] MEDS: HYDROcodone/APAP 5 MG/325 MG (LORTAB) TAB PO PRN (04:02)
[2020-10-17 05:37] LABS: CHLORIDE 101 MMOL/L (98-107); POTASSIUM 4.1 MMOL/L (3.6-5.0); SODIUM 135 MMOL/L (135-145)
[2020-10-17 05:38] LABS: CALCIUM 8.8 MG/DL (8.5-10.1)
[2020-10-17 05:39] LABS: GLUCOSE 271 MG/DL (70-105)
[2020-10-17 05:40] LABS: CARBON DIOXIDE 24 MMOL/L (21-32)
[2020-10-17 05:42] LABS: PHOSPHORUS 4.5 MG/DL (2.3-4.7)
[2020-10-17 05:43] LABS: CREATININE SERUM 0.78 MG/DL (0.60-1.30); GFR ESTIMATED > 60
[2020-10-17 05:44] LABS: BUN/CREATININE RATIO 22
[2020-10-17 05:45] LABS: MAGNESIUM 1.6 MG/DL (1.6-2.4)
[2020-10-17] MEDS: POTASSIUM CL 10MEQ/50ML IVPB 50 ML IV SCH (05:47)
[2020-10-17] MEDS: KCL 20 MEQ TAB (K-DUR) PO SCH (05:47)
[2020-10-17] MEDS: MAGNESIUM 1 GM/100 ML IVPB 100 ML IV SCH ×3 (05:49→05:55)
[2020-10-17] MEDS: inSUlin ASPART (NovoLOG) 1 UNIT/0.01 ML (CHARGE PER UNIT) SC SCH ×8 (06:41→21:23)
--- NOTE | 2020-10-17 08:46 | Physical Therapy Daily Note ---
PT Daily Note-Current Subjective Patient in recliner pre tx, agrees to PT, has no complaints of pain but has been having some neck spasms. Appearance Patient in recliner post tx with nurse call, phone, tray, all needs met. Mental Status Patient Orientation: Person, Place, Situation Transfers SCALE: Activities may be completed with or without assistive devices. 9-Kqzrnrqebp-ccimlaa completes the activity by him/herself with no assistance from a helper. 5-Set-up or Clean-up Assistance-helper sets up or cleans up; patient completes activity. [place] assists only prior to or following the activity. 4-Supervision or Touching Assistance-helper provides verbal cues and/or touching/steadying and/or contact guard assistance as patient completes activity. Assistance may be provided throughout the activity or intermittently. 3-Partial/Moderate Assistance-helper does LESS THAN HALF the effort. [place] lifts, holds or supports trunk or limbs, but provides less than half the effort. 2-Substantial/Maximal Assistance-helper does MORE THAN HALF the effort. [place] lifts or holds trunk or limbs and provides more than half the effort. 0-Pnsmrmrkr-mdmfrg does ALL the effort. Patient does none of the effort to complete the activity. Or, the assistance of 2 or more helpers is required for the patient to complete the activity. If activity was not attempted, code reason: 7-Patient Refused. 9-Not Applicable-not attempted and the patient did not perform the activity before the current illness, exacerbation or injury. 10-Not Attempted due to Environmental Limitations-(lack of equipment, weather restraints, etc.). 88-Not Attempted due to Medical Conditions or Safety Concerns. Sit to Stand (QC): 4 Chair/Bjc-dh-Egtkm Xfer(QC): 4 patient needs some assist placing her left hand on the walker due to poor coordination Gait Training Distance: 40' Walk 10 feet (QC): 4 Gait Persons Needed: 1 Gait Assistive Device: FWW slow but steady ambulation, poor stepping coordination with left leg Exercises Seated Therapy Exercises: Ankle pumps, Long arc quads, Hip flexion Seated Reps: 20 Treatments transfers, ambulation, LE exercise Assessment Current Status: Fair Progress improving ambulation and balance PT Environmental Compliance Inspector Goals Residential Goals PT Residential Goals Time Frame: Oct 28, 2020 Roll Left & Right (QC): 6 Sit to Lying (QC): 6 Lying-Sitting on Side/Bed(QC): 6 Sit to Stand (QC): 6 Chair/Cal-eg-Wyfra Xfer(QC): 6 Toilet Transfer (QC): 6 Car Transfer (QC): 6 Does the Patient Walk: Yes Walk 10 feet (QC): 6 Walk 50ft with 2 Turns (QC): 6 Walk 150 ft (QC): 6 Walking 10ft on Uneven Surface: 6 1 Step (curb) (QC): 6 4 Steps (QC): 6 PT Plan Problem List Problem List: Activity Tolerance, Functional Strength, Safety, Balance, Gait, Transfer, Bed Mobility, ROM Treatment/Plan Treatment Plan: Continue Plan of Care Treatment Plan: Bed Mobility, Education, Functional Activity Marian, Functional Strength, Gait, Safety, Therapeutic Exercise, Transfers Treatment Duration: Oct 28, 2020 Frequency: 6 times per week Estimated Hrs Per Day: .25 hour per day Safety Risks/Education Patient Education: Gait Training, Transfer Techniques, Correct Positioning, Safety Issues Teaching Recipient: Patient Teaching Methods: Demonstration, Discussion Response to Teaching: Reinforcement Needed Time/GCodes Time In: 817 Time Out: 828 Total Billed Treatment Time: 11 Total Billed Treatment 1 visit FA 11' GUILHERME MARTINEZ PT Oct 17, 2020 08:46
[2020-10-17] MEDS: NICOTINE 21 MG (NICODERM) PATCH TD SCH (09:22)
[2020-10-17] MEDS: CLOPIDOGREL 75 MG (PLAVIX) TABLET PO SCH (09:23)
[2020-10-17] MEDS: DULoxetine 30 MG (CYMBALTA) CAP PO SCH (09:23)
[2020-10-17] MEDS: meTOproloL SUCCINATE 50 MG (TOPROL XL) TAB PO SCH (09:23)
[2020-10-17] MEDS: NITROFURANTOIN 100 MG (MACROBID) CAPSULE PO SCH ×2 (09:23→21:22)
[2020-10-17] MEDS: ENOXAPARIN 40 MG/0.4 ML (LOVENOX) SYR SQ SCH (09:23)
[2020-10-17] MEDS: ASPIRIN 81 MG CHEW (CHILDREN'S ASA) PO SCH (09:23)
[2020-10-17] MEDS: lisINopril 20 MG (PRINIVIL) TABLET PO SCH (09:24)
[2020-10-17] MEDS: PATCH REMOVAL TP SCH (09:25)
[2020-10-17] MEDS ORDERED: ACET/BUTAL/CAFF (FIORICET) TAB PO PRN (10:30)
--- NOTE | 2020-10-17 11:43 | Progress Note - Hospitalist ---
Subjective HPI/CC On Admission Date Seen by Provider: Oct 17, 2020 Time Seen by Provider: 09:25 Pt is a 60yoCF with a PMH of IDDMII, HTN, HLD, tobacco abuse, and migraines who presented to the ER due to left sided weakness. She was seen in the ER on 10/12 but left AMA without waiting for CT head. She returned yesterday becauseher sy mptoms were worsening. She states that on 07/10 she started to developed nightly migraines which is unusual for her. She took fiorcet without relief. 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 She scheduled a televisit with MARITZA David for evaluation on 10/12 and she was adivsed to seek care in the ER which is when she left AMA. She returned yesterday because around 10am her left leg also became "." She was evaluated for a stroke which was confirmed on CT and MRI. She was also found to have carotid stenosis. Case was discussed with stroke neurology (Dr Puentes) at [facility] who declined transfer and recommended local management with DAPT and statin without outpatient follow up. She was not a candidate for TPA due to time of onset to presentation. Subjective/Events-last exam She continues to have neck spasms. She has been working with physical therapy. She would like to pursue inpatient rehab. Objective Exam Vital Signs Vital Signs Date Time Temp Pulse Resp B/P (MAP) Pulse Ox O2 Delivery O2 Flow Rate FiO2 10/17/20 07:59 36.0 63 18 142/68 (92) 93 Room Air 10/16/20 15:50 0.00 Capillary Refill : Less Than 3 Seconds General Appearance: No Apparent Distress, Obese Respiratory: Lungs Clear, Normal Breath Sounds, No Respiratory Distress Cardiovascular: Regular Rate, Rhythm, No Murmur Gastrointestinal: Normal Bowel Sounds, Non Tender, Soft Extremity: Normal Inspection, Non Tender, Pedal Edema Neurologic/Psychiatric: Alert, Oriented x3, Normal Mood/Affect, Motor Weakness Skin: Normal Color, Warm/Dry Results/Procedures Lab Laboratory Tests 10/17/20 04:50 Patient resulted labs reviewed. Imaging: Reviewed Imaging Report Assessment/Plan Assessment and Plan Assess & Plan/Chief Complaint Acute ischemic stroke Carotid stenosis MRI confirmed multifocal acute stroke [facility] stroke neurology recommends outpatient follow up for carotid stenosis Continue ASA and Plavix Continue Statin PT/OT/ST IRU accepted, awaiting insurance approval and bed availability T2DM with hyperglycemia Continue Levemir NovoLog with meals Sliding scale insulin A1c 12.2% HTN HLD Increase Lisinopril Continue Metoprolol and statin Neck spasms Continue gabapentin Increase Flexeril Consider outpatient EMG if no improvement UTI E coli on cultures, shipley-sensitive Transition to Macrobid DVT prophylaxis: Lovenox Diagnosis/Problems Diagnosis/Problems (1) Acute ischemic stroke Status: Acute (2) Carotid stenosis Status: Acute Qualifiers: Laterality: bilateral Qualified Codes: I65.23 - Occlusion and stenosis of bilateral carotid arteries (3) Hypertension Status: Chronic Qualifiers: Hypertension type: essential hypertension Qualified Codes: I10 - Essential (primary) hypertension (4) Hyperlipidemia due to type 2 diabetes mellitus Status: Chronic (5) Diabetes mellitus Status: Chronic Qualifiers: Diabetes mellitus type: type 2 Diabetes mellitus terminologist insulin use: with skilled nursing use Diabetes mellitus complication status: with hyperglycemia Qualified Codes: E11.65 - Type 2 diabetes mellitus with hyperglycemia; Z79.4 - intermediate accountant (current) use of insulin (6) Tobacco abuse Status: Chronic (7) Obesity Status: Chronic (8) UTI (urinary tract infection) Status: Acute Clinical Quality Measures Stroke: Date of last known well: Oct 09, 2020 Time of last known well: 12:13 Symptoms onset unknown: Yes AMADO DEVRIES MD Oct 17, 2020 11:43
[2020-10-17] MEDS ORDERED: CYCLOBENZAPRINE 10 MG (FLEXERIL) TAB PO PRN (11:45)
--- NOTE | 2020-10-17 14:05 | Occupational Ther Daily Note ---
OT Current Status-Daily Note Subjective Pt alert, in bathroom with nrsg. Pt agrees to therapy. Took over care from nrsg. Mental Status/Objective Patient Orientation: Person, Place, Time, Situation ADL-Treatment SBA for toileting and CGA for toilet transfer. Therapy Code Descriptions/Definitions Functional [place] Measure: 0=Not Assessed/NA 4=Minimal Assistance 1=Total Assistance 5=Supervision or Setup 2=Maximal Assistance 6=Modified [place] 3=Moderate Assistance 7=Complete IndependenceSCALE: Activities may be completed with or without assistive devices. 0-Lwjraigqns-hknupuj completes the activity by him/herself with no assistance from a helper. 5-Set-up or Clean-up Assistance-helper sets up or cleans up; patient completes activity. [place] assists only prior to or following the activity. 4-Supervision or Touching Assistance-helper provides verbal cues and/or touching/steadying and/or contact guard assistance as patient completes act ivity. Assistance may be provided throughout the activity or intermittently. 3-Partial/Moderate Assistance-helper does LESS THAN HALF the effort. [place] lifts, holds or supports trunk or limbs, but provides less than half the effort. 2-Substantial/Maximal Assistance-helper does MORE THAN HALF the effort. [place] lifts or holds trunk or limbs and provides more than half the effort. 3-E[place]-pbbfgj does ALL the effort. Patient does none of the effort to complete the activity. Or, the assistance of 2 or more helpers is required for the patient to complete the activity. If activity was not attempted, code reason: 7-Patient Refused. 9-Not Applicable-not attempted and the patient did not perform the activity before the current illness, exacerbation or injury. 10-Not Attempted due to Environmental Limitations-(lack of equipment, weather restraints, etc.). 88-Not Attempted due to Medical Conditions or Safety Concerns. Toileting Hygiene (QC): 4 Toilet Transfer (QC): 4 Other Treatment Pt given fine motor dexterity/coordination tasks to increase L finger/hand control for buttoning, opening packages and functional tasks. Pt has fair strength with L UE though decreased coordination of L UE. Pinching therapy sponge in specific area, finger push up with straw and finger translation with digits. After therapy, pt sitting in recliner with call light/phone in reach. All needs met in room. OT Cost Controller Goals Prison Goals Time Frame: Oct 20, 2020 Eating (QC): 6 Oral Hygiene (QC): 6 Toileting Hygiene (QC): 6 Shower/Bathe Self (QC): 6 Upper Body Dressing (QC): 6 Lower Body Dressing (QC): 6 On/Off Footwear (QC): 6 Additional Goals: 1-Demonstrate ADL Tasks, 2-Verbalize Understanding, 3- ImproveStrength/Marian 1=Demonstrate adherence to instructed precautions during ADL tasks. 2=Patient will verbalize/demonstrate understanding of assistive devices/modifications for ADL. 3=Patient will improve strength/tolerance for activity to enable patient to perform ADL's. OT Education/Plan Problem List/Assessment Assessment: Impaired Coordination (L ue), Impaired Self-Care Skills Discharge Recommendations Plan/Recommendations: Continue POC Treatment Plan/Plan of Care Patient would benefit from OT for education, treatment and training to promote independence in ADL's, mobility, safety and/or upper extremity function for ADL's. Plan of Care: ADL Retraining, UE Funct Exercise/Act, UE Neuromus Re-Ed/Coord Treatment Duration: Oct 20, 2020 Frequency: 5 times per week Estimated Hrs Per Day: .25 hour per day Agreement: Yes Rehab Potential: Fair Time/GCodes Start Time: 13:30 Stop Time: 14:53 Total Time Billed (hr/min): 23 Billed Treatment Time 1 visit-ADL 1 (10 min) NM 1 (13 min) ALEXANDRA JOSÉ Oct 17, 2020 14:05
[2020-10-17] MEDS: GABAPENTIN 300 MG (NEURONTIN) CAP PO SCH (21:22)
[2020-10-17] MEDS: ACETAMINOPHEN 325 MG TABLET PO PRN (23:55)
[2020-10-18 04:22] VITALS: BP 161/76
[2020-10-18 06:43] LABS: BUN/CREATININE RATIO 20; CALCIUM 8.9 MG/DL (8.5-10.1); CARBON DIOXIDE 25 MMOL/L (21-32); CHLORIDE 102 MMOL/L (98-107); CREATININE SERUM 0.89 MG/DL (0.60-1.30); GFR ESTIMATED > 60; GLUCOSE 253 MG/DL (70-105); MAGNESIUM 2.6 MG/DL (1.6-2.4); PHOSPHORUS 3.9 MG/DL (2.3-4.7); POTASSIUM 4.1 MMOL/L (3.6-5.0); SODIUM 135 MMOL/L (135-145)
[2020-10-18] MEDS: POTASSIUM CL 10MEQ/50ML IVPB 50 ML IV SCH (06:57)
[2020-10-18] MEDS: MAGNESIUM 1 GM/100 ML IVPB 100 ML IV SCH (06:58)
[2020-10-18] MEDS: KCL 20 MEQ TAB (K-DUR) PO SCH (06:58)
[2020-10-18] MEDS: inSUlin ASPART (NovoLOG) 1 UNIT/0.01 ML (CHARGE PER UNIT) SC SCH ×3 (07:16→16:15)
[2020-10-18 07:30] VITALS: BP 138/73
--- NOTE | 2020-10-18 08:38 | Physical Therapy Daily Note ---
PT Daily Note-Current Subjective Patient in recliner pre tx, agrees to PT, has no complains of pain and states she has not had a neck spasm is quite a while. Appearance Patient in recliner post tx with nurse call, phone, tray, all needs met. Mental Status Patient Orientation: Normal For Age Transfers SCALE: Activities may be completed with or without assistive devices. 8-Jziftuimmb-pdzsgmu completes the activity by him/herself with no assistance from a helper. 5-Set-up or Clean-up Assistance-helper sets up or cleans up; patient completes activity. [place] assists only prior to or following the activity. 4-Supervision or Touching Assistance-helper provides verbal cues and/or touching/steadying and/or contact guard assistance as patient completes activity. Assistance may be provided throughout the activity or intermittently. 3-Partial/Moderate Assistance-helper does LESS THAN HALF the effort. [place] lifts, holds or supports trunk or limbs, but provides less than half the effort. 2-Substantial/Maximal Assistance-helper does MORE THAN HALF the effort. [place] lifts or holds trunk or limbs and provides more than half the effort. 5-Ywgdrrbrd-dqwxdx does ALL the effort. Patient does none of the effort to complete the activity. Or, the assistance of 2 or more helpers is required for the patient to complete the activity. If activity was not attempted, code reason: 7-Patient Refused. 9-Not Applicable-not attempted and the patient did not perform the activity before the current illness, exacerbation or injury. 10-Not Attempted due to Environmental Limitations-(lack of equipment, weather restraints, etc.). 88-Not Attempted due to Medical Conditions or Safety Concerns. Sit to Stand (QC): 4 Chair/Vaq-vd-Zjqew Xfer(QC): 4 Patient did not need assist to place her hand on the walker, did it without difficulty Gait Training Distance: 150' Walk 10 feet (QC): 4 Walk 50 ft with 2 Turns(QC): 4 Walk 150 ft (QC): 4 Gait Persons Needed: 1 Gait Assistive Device: FWW CGA/SBA, better left foot clearance, slow but steady ambulation Exercises Seated Therapy Exercises: Ankle pumps, Long arc quads, Hip flexion Seated Reps: 20 Treatments transfers, ambulation, LE strengthening Assessment Current Status: Fair Progress improving functional mobility PT Software Applications Designer Goals Software Applications Designer Goals PT Software Applications Designer Goals Time Frame: Oct 28, 2020 Roll Left & Right (QC): 6 Sit to Lying (QC): 6 Lying-Sitting on Side/Bed(QC): 6 Sit to Stand (QC): 6 Chair/Mvm-aq-Gfkko Xfer(QC): 6 Toilet Transfer (QC): 6 Car Transfer (QC): 6 Does the Patient Walk: Yes Walk 10 feet (QC): 6 Walk 50ft with 2 Turns (QC): 6 Walk 150 ft (QC): 6 Walking 10ft on Uneven Surface: 6 1 Step (curb) (QC): 6 4 Steps (QC): 6 PT Plan Problem List Problem List: Activity Tolerance, Functional Strength, Safety, Balance, Gait, Transfer Treatment/Plan Treatment Plan: Continue Plan of Care Treatment Plan: Bed Mobility, Education, Functional Activity Marian, Functional Strength, Gait, Safety, Therapeutic Exercise, Transfers Treatment Duration: Oct 28, 2020 Frequency: 6 times per week Estimated Hrs Per Day: .25 hour per day Safety Risks/Education Patient Education: Gait Training, Transfer Techniques, Correct Positioning, Safety Issues Teaching Recipient: Patient Teaching Methods: Demonstration, Discussion Response to Teaching: Reinforcement Needed Time/GCodes Time In: 08 Time Out: 0824 Total Billed Treatment Time: 12 Total Billed Treatment 1 visit FA GUILHERME RIOS PT Oct 18, 2020 08:38
[2020-10-18] MEDS: CLOPIDOGREL 75 MG (PLAVIX) TABLET PO SCH (09:40)
[2020-10-18] MEDS: ASPIRIN 81 MG CHEW (CHILDREN'S ASA) PO SCH (09:40)
[2020-10-18] MEDS: ENOXAPARIN 40 MG/0.4 ML (LOVENOX) SYR SQ SCH (09:40)
[2020-10-18] MEDS: lisINopril 20 MG (PRINIVIL) TABLET PO SCH (09:41)
[2020-10-18] MEDS: DULoxetine 30 MG (CYMBALTA) CAP PO SCH (09:41)
[2020-10-18] MEDS: PATCH REMOVAL TP SCH (09:42)
[2020-10-18] MEDS: NICOTINE 21 MG (NICODERM) PATCH TD SCH (09:42)
[2020-10-18] MEDS: NITROFURANTOIN 100 MG (MACROBID) CAPSULE PO SCH (09:46)
[2020-10-18] MEDS ORDERED: CLOP75TA28 PO (10:43)
[2020-10-18] MEDS ORDERED: NITR100C10 PO (10:43)
[2020-10-18] MEDS ORDERED: LISI20TA26 PO (10:43)
[2020-10-18] MEDS ORDERED: ATOR40TA PO (10:43)
[2020-10-18] MEDS ORDERED: CARV12.53 PO (10:43)
[2020-10-18] MEDS ORDERED: CYCL10TA9 PO (10:43)
--- NOTE | 2020-10-18 10:48 | Discharge Summary ---
Discharge Summary Reconcile Patient Problems Problems Reviewed?: Yes Instructions for Patient Via [facility] [employer], Assessment/Instructions Take medications as prescribed. You are being set up with home health care. Follow-up with your primary care physician in about a week. Return with worsening weakness or if you feel like you are getting worse. Physician to follow Patient: Frankie Discharge Diet for Home: ADA Diet Hospital Course Date of Admission: Oct 13, 2020 at 13:11 Admission Diagnosis : Family Physician/Provider: Joey David DO Date of Discharge: 10/18/20 Discharge Diagnosis: [ ] Hospital Course: [ ] Labs and Pending Lab Test: Laboratory Tests 10/17/20 11:16: Glucometer 381H 10/17/20 15:57: Glucometer 224H 10/17/20 18:43: Glucometer 69L 10/17/20 21:02: Glucometer 157H 10/18/20 05:15: Sodium Level 135, Potassium Level 4.1, Chloride Level 102, Carbon Dioxide Level 25, Anion Gap 8, Blood Urea Nitrogen 18, Creatinine 0.89, Estimat Glomerular Filtration Rate > 60, BUN/Creatinine Ratio 20, Glucose Level 253H, Calcium Level 8.9, Phosphorus Level 3.9, Magnesium Level 2.6H 10/18/20 06:51: Glucometer 253H Microbiology 10/13/20 MRSA Screen - Final, Complete MRSA not isolated 10/13/20 Urine Culture - Final, Complete Escherichia coli Mixed Bacterial Shila Home Meds Active Clopidogrel (Clopidogrel Bisulfate) 75 Mg Tablet 75 Mg PO DAILY 30 Days Cyclobenzaprine HCl 10 Mg Tablet 10 Mg PO TID PRN 7 Days Lisinopril 20 Mg Tablet 40 Mg PO DAILY 30 Days Carvedilol 12.5 Mg Tablet 12.5 Mg PO BID 30 Days Lipitor (Atorvastatin Calcium) 40 Mg Tablet 40 Mg PO HS 30 Days Nitrofurantoin Coal-Mcr 100 mg (Nitrofurantoin Monohyd/M-Cryst) 100 Mg Capsule 100 Mg PO BID 5 Days Reported Magnesium (Magnesium Oxide) 400 Mg Tablet 400 Mg PO HS Aspirin EC (Aspirin) 81 Mg Tablet. 81 Mg PO HS Vitamin D3 (Cholecalciferol (Vitamin D3)) 25 Mcg Capsule 50 Mcg PO HS TAKES 2 (25MCG) CAPSULES Novolog Flexpen (Insulin Aspart) 300 Units/3 Ml Solution 15 Units SQ WM Basaglar Kwikpen U-100 (Insulin Glargine,Hum.rec.anlog) 100 Unit/1 Ml Insuln.pen 50 Units SQ HS Metoprolol Succinate 50 Mg Tab.er.24h 50 Mg PO HS Fenofibrate (Fenofibrate Nanocrystallized) 145 Mg Tablet 145 Mg PO HS Duloxetine HCl 60 Mg Capsule.dr 60 Mg PO HS Topiramate 25 Mg Tablet 50 Mg PO HS TAKES 2 (25MG) TABLETS Neurontin (Gabapentin) 300 Mg Capsule 300 Mg PO HS Patient Allergies: Coded Allergies: morphine (Unverified Adverse Reaction, Intermediate, MAKES HER MEAN, 08/06/12) Height (Feet): 0 Height (Inches): 64.00 Weight (Pounds): 180 Weight (Ounces): 1.0 Home Health Need/Face to Face Homebound Status Due to the above stated illness, injury or surgical procedure (medical condition or diagnosis) and associated clinical findings, the patient is homebound because of his/her inability to leave home except with aid of a supportive device and/or person AND leaving the home requires a considerable and taxing effort or is medically contraindicated. Home Health Infusion Therapy Line Start Date: Oct 13, 2020 Certify Stmt I certify that this patient is under my care and that I, a nurse practitioner or a physician; a nurses medical assistants phlebotomists working with me, had a face to face encounter that - meets the physician face to face encounter requirements with this patient as dated. AMADO DEVRIES MD Oct 18, 2020 10:47
[2020-10-18 11:42] VITALS: BP 125/76
[2020-10-18] MEDS ORDERED: inSUlin ASPART (NovoLOG) 1 UNIT/0.01 ML (CHARGE PER UNIT) SC SCH ×2 (12:00→17:00)
--- NOTE | 2020-10-18 12:03 | Discharge Summary ---
Discharge Summary Reconcile Patient Problems Problems Reviewed?: Yes Instructions for Patient Via [facility]ma [employer], Assessment/Instructions Take medications as prescribed. You are being set up with home health care. Follow-up with your primary care physician in about a week. Return with worsening weakness or if you feel like you are getting worse. Physician to follow Patient: Frankie Discharge Diet for Home: ADA Diet Hospital Course Date of Admission: Oct 13, 2020 at 13:11 Admission Diagnosis : Acute ischemic stroke Family Physician/Provider: Joey David DO Date of Discharge: 10/18/20 Discharge Diagnosis: Acute ischemic stroke Hospital Course: Becky Wylie is a 60-year-old female with past medical history of hypertension, hyperlipidemia, insulin-dependent diabetes, obesity, tobacco abuse, who presented with left-sided weakness and was admitted with acute ischemic stroke. Her initial CT scan was negative for acute abnormalities. She underwent an MRI which showed acute ischemic stroke in the right frontal and parietal cortex as well as the parietal subcortical region. She was outside of the window for TPA. CTA neck revealed bilateral carotid stenosis with high-grade stenosis in the distal right internal carotid artery. She was started on aspirin and Plavix. She was started on Lipitor. She should follow-up with Dr. Schmitt, vascular surgery, in 6 weeks to evaluate for possible intervention. Her course was complicated by hypertension and her medication regimen was adjusted. She also had a urinary tract infection and was treated with antibiotics. Physical and Occupational Therapy worked with her and she was evaluated by the inpatient rehabilitation unit. She was deemed to not be a candidate for inpatient rehab. She was doing well enough that she could go home with home health. She was encouraged to stop smoking. She was discharged home in stable condition. She should follow-up with your primary care physician in about a week. Labs and Pending Lab Test: Laboratory Tests 10/17/20 15:57: Glucometer 224H 10/17/20 18:43: Glucometer 69L 10/17/20 21:02: Glucometer 157H 10/18/20 05:15: Sodium Level 135, Potassium Level 4.1, Chloride Level 102, Carbon Dioxide Level 25, Anion Gap 8, Blood Urea Nitrogen 18, Creatinine 0.89, Estimat Glomerular Filtration Rate > 60, BUN/Creatinine Ratio 20, Glucose Level 253H, Calcium Level 8.9, Phosphorus Level 3.9, Magnesium Level 2.6H 10/18/20 06:51: Glucometer 253H 10/18/20 11:41: Glucometer 407*H Microbiology 10/13/20 MRSA Screen - Final, Complete MRSA not isolated 10/13/20 Urine Culture - Final, Complete Escherichia coli Mixed Bacterial Shila Home Meds Active Clopidogrel (Clopidogrel Bisulfate) 75 Mg Tablet 75 Mg PO DAILY 30 Days Cyclobenzaprine HCl 10 Mg Tablet 10 Mg PO TID PRN 7 Days Lisinopril 20 Mg Tablet 40 Mg PO DAILY 30 Days Carvedilol 12.5 Mg Tablet 12.5 Mg PO BID 30 Days Lipitor (Atorvastatin Calcium) 40 Mg Tablet 40 Mg PO HS 30 Days Nitrofurantoin [place]-Mcr 100 mg (Nitrofurantoin Monohyd/M-Cryst) 100 Mg Capsule 100 Mg PO BID 5 Days Reported Magnesium (Magnesium Oxide) 400 Mg Tablet 400 Mg PO HS Aspirin EC (Aspirin) 81 Mg Tablet.dr 81 Mg PO HS Vitamin D3 (Cholecalciferol (Vitamin D3)) 25 Mcg Capsule 50 Mcg PO HS TAKES 2 (25MCG) CAPSULES Novolog Flexpen (Insulin Aspart) 300 Units/3 Ml Solution 15 Units SQ WM Basaglar Kwikpen U-100 (Insulin Glargine,Hum.rec.anlog) 100 Unit/1 Ml Insuln.pen 50 Units SQ HS Metoprolol Succinate 50 Mg Tab.er.24h 50 Mg PO HS Fenofibrate (Fenofibrate Nanocrystallized) 145 Mg Tablet 145 Mg PO HS Duloxetine HCl 60 Mg Capsule.dr 60 Mg PO HS Topiramate 25 Mg Tablet 50 Mg PO HS TAKES 2 (25MG) TABLETS Neurontin (Gabapentin) 300 Mg Capsule 300 Mg PO HS Patient Allergies: Coded Allergies: morphine (Unverified Adverse Reaction, Intermediate, MAKES HER MEAN, 08/06/12) Height (Feet): 0 Height (Inches): 64.00 Weight (Pounds): 180 Weight (Ounces): 1.0 Home Health Need/Face to Face Date of Face to Face: Oct 18, 2020 Clinical Findings: Generalized weakness and fatigue, Muscle weakness, Unsteady gait I have seen Pt vsiv-jf-zeke: Yes Discharged To: Home Diagnosis/Conditions: Acute ischemic stroke Hypertension Hyperlipidemia Diabetes Carotid stenosis Obesity Problems/Diagnosis/Condition: (1) Acute ischemic stroke (2) Diabetes mellitus (3) Obesity (4) Hypertension (5) Carotid stenosis (6) Hyperlipidemia due to type 2 diabetes mellitus Patient is Homebound due to: Edgar fall risk due to instabilty, Muscle weakness Homebound Status Due to the above stated illness, injury or surgical procedure (medical condition or diagnosis) and associated clinical findings, the patient is homebound because of his/her inability to leave home except with aid of a supportive device and/or person AND leaving the home requires a considerable and taxing effort or is medically contraindicated. Pt req the following assistanc: Aid of another person Home Health Nursing Orders Home Health Services Order: Nursing Services, Reservoir Caretaker-Evaluate & Treat, Physical Therapy-Evaluate & Treat Home Health Infusion Therapy Line Start Date: Oct 13, 2020 Therapy Orders Therapy Orders: OT (must have SN or PT order), Physical Therapy Therapy Specific Orders: Eval assistive deivces, Teach enviro modifications/safety, Gait training, Increase strength/endurance Certify Stmt I certify that this patient is under my care and that I, a nurse practitioner or a physician; a porcelain buildup assistant working with me, had a face to face encounter that - meets the physician face to face encounter requirements with this patient as dated. Discharge Physical Exam General: Alert, Oriented X3, Cooperative, No Acute Distress HEENT: Atraumatic, EOMI, Mucous Memb Moist/[place] Lungs: Clear to Auscultation, Normal Air Movement Heart: Regular Rate, Normal S1, Normal S2, No Murmurs Abdomen: Normal Bowel Sounds, Soft, No Tenderness Extremities: No Edema, No Tenderness/Swelling Skin: No Rashes, No Significant Lesion Neuro: Normal Speech, Other (Left-sided weakness) Psych/Mental Status: Mental Status NL, Mood NL AMADO DEVRIES MD Oct 18, 2020 11:58
--- NOTE | 2020-10-18 12:49 | Occupational Ther Daily Note ---
OT Current Status-Daily Note Subjective Pt alert, sitting in recliner. Pt agrees to therapy. No c/o pain. Mental Status/Objective Patient Orientation: Person, Place, Time, Situation ADL-Treatment Educated pt on tub/shower transfers by stepping in. Pt demonstrated understanding and with CGA for safety. Pt able to don/doff pants and footwear by self. Therapy Code Descriptions/Definitions Functional [place] Measure: 0=Not Assessed/NA 4=Minimal Assistance 1=Total Assistance 5=Supervision or Setup 2=Maximal Assistance 6=Modified [place] 3=Moderate Assistance 7=Complete IndependenceSCALE: Activities may be completed with or without assistive devices. 6-Vuctbpjnag-nkkrutm completes the activity by him/herself with no assistance from a helper. 5-Set-up or Clean-up Assistance-helper sets up or cleans up; patient completes activity. [place] assists only prior to or following the activity. 4-Supervision or Touching Assistance-helper provides verbal cues and/or touching/steadying and/or contact guard assistance as patient completes activity. Assistance may be provided throughout the activity or intermittently. 3-Partial/Moderate Assistance-helper does LESS THAN HALF the effort. [place] l ifts, holds or supports trunk or limbs, but provides less than half the effort. 2-Substantial/Maximal Assistance-helper does MORE THAN HALF the effort. [place] lifts or holds trunk or limbs and provides more than half the effort. 3-Mtshjfkvu-bcwlxe does ALL the effort. Patient does none of the effort to complete the activity. Or, the assistance of 2 or more helpers is required for t he patient to complete the activity. If activity was not attempted, code reason: 7-Patient Refused. 9-Not Applicable-not attempted and the patient did not perform the activity before the current illness, exacerbation or injury. 10-Not Attempted due to Environmental Limitations-(lack of equipment, weather restraints, etc.). 88-Not Attempted due to Medical Conditions or Safety Concerns. Lower Body Dressing (QC): 6 On/Off Footwear: 6 Other Treatment Pt given green theraputty and HEP for fine motor skills to improve dexterity/coordination of L hand/fingers. Pt has good strength and poor to fair fine motor control. Pt demonstrated understanding of each exercise though hand fatigues quickly. After session, pt sitting in recliner with call light/phone in reach. All needs met in room. OT Bottle Feeder Goals [facility] Goals Time Frame: Oct 20, 2020 Eating (QC): 6 Oral Hygiene (QC): 6 Toileting Hygiene (QC): 6 Shower/Bathe Self (QC): 6 Upper Body Dressing (QC): 6 Lower Body Dressing (QC): 6 On/Off Footwear (QC): 6 Additional Goals: 1-Demonstrate ADL Tasks, 2-Verbalize Understanding, 3- ImproveStrength/[place] 1=Demonstrate adherence to instructed precautions during ADL tasks. 2=Patient will verbalize/demonstrate understanding of assistive devices/modifications for ADL. 3=Patient will improve strength/tolerance for activity to enable patient to perform ADL's. OT Education/Plan Problem List/Assessment Assessment: Decreased UE Strength Discharge Recommendations Plan/Recommendations: Continue POC Treatment Plan/Plan of Care Patient would benefit from OT for education, treatment and training to promote independence in ADL's, mobility, safety and/or upper extremity function for ADL's. Plan of Care: ADL Retraining, UE Funct Exercise/Act, UE Neuromus Re-Ed/Coord Treatment Duration: Oct 20, 2020 Frequency: 5 times per week Estimated Hrs Per Day: .25 hour per day Agreement: Yes Rehab Potential: Fair Time/GCodes Start Time: 11:10 Stop Time: 11:40 Total Time Billed (hr/min): 30 Billed Treatment Time 1 visit-FA 1 (10 min) EX 1 (20 min) ALEXANDRA JOSÉ Oct 18, 2020 12:49
[2020-10-18 16:46] VITALS: BP 125/76
== END 2020-10-18 17:35 | disposition home health service (06) | DRG 65 ==
LOC: EDUNIT# 10:57 → ER 10:59 → ICU 13:11 → 4TH 10-15 13:22
PROVIDERS: ADMIT Family Medicine; ATTEND Internal Medicine
DX: I63.231 Cerebral infarction due to unspecified occlusion or stenosis of right carotid arteries (principal); G81.94 Hemiplegia, unspecified affecting left nondominant side; N39.0 Urinary tract infection, site not specified; I67.5 Moyamoya disease; I65.22 Occlusion and stenosis of left carotid artery; R29.711 NIHSS score 11; E11.65 Type 2 diabetes mellitus with hyperglycemia; Z79.4 Long term (current) use of insulin; F17.210 Nicotine dependence, cigarettes, uncomplicated; E78.00 Pure hypercholesterolemia, unspecified; E78.5 Hyperlipidemia, unspecified; I10 Essential (primary) hypertension; F41.9 Anxiety disorder, unspecified; F32.9 Major depressive disorder, single episode, unspecified; Z88.6 Allergy status to analgesic agent; Z91.19 Patient's noncompliance with other medical treatment and regimen; R25.2 Cramp and spasm; E66.9 Obesity, unspecified; Z68.32 Body mass index [BMI] 32.0-32.9, adult
CPT/HCPCS: 36415; 70450; 70496; 70498; 70551; 71045; 80048; 80053; 80061; 81000; 82947; 83036; 83735; 84100; 84484; 85025; 85027; 85379; 85610; 85730; 87077; 87081; 87088; 87186; 93005; 93041; 93306; 96374; 96375

== ENCOUNTER 2020-12-06 08:30 | Outpatient (RCR) | payer OTHER ==
[~2020-12-06 08:30] MED LIST changes: +ASPI-1238 PO; +ATOR40TA PO; +CARV12.53 PO; +CHOL10007 PO; +CLOP75TA28 PO; +CYCL10TA25 PO; +DULO60CA59 PO; +FENO145T26 PO; +GABA300C PO; +INSU100I14 SQ; +INSU100I34 SQ; +LISI20TA26 PO; +MAGN400T39 PO; +METO50TA7 PO; +NITR100C10 PO; +TOPI25TA10 PO
== END 2021-03-06 | disposition home or self-care (01) ==
LOC: CARD 08:30
PROVIDERS: ATTEND Nurse Practitioner Family
DX: R00.2 Palpitations (principal); I63.9 Cerebral infarction, unspecified; I73.9 Peripheral vascular disease, unspecified

== ENCOUNTER → 2021-11-14 | Outpatient (CLI) | payer OTHER | LOC: CARD 13:59 | PROVIDERS: ATTEND Thoracic Surgery (Cardiothoracic Vascular Surgery) | DX: R42 Dizziness and giddiness (principal) | CPT/HCPCS: 93306 ==